=== PATIENT | male | born 1955 | race African-American/Black ===

== ENCOUNTER 2025-02-26 11:01 | Outpatient (AMB) | payer MEDICARE, MEDICAID, SELFPAY ==
--- OUTSIDE RECORDS SUMMARY | 2025-02-25 14:00 | XMS_ITS | Encounter Summary ---
Author Organization [facility] Address [address] [place] [address] Care Team Providers Care Community Affairs Manager Name Role Phone Jonathan Roth MD Primary Care Provider [phone] Reason for Visit * Reason Comments Chronic Kidney Disease Encounter Details Date Type Department Care Team (Latest Contact Info) Description 02/25/2025 2:00 PM EST Office Visit Nephrology - [facility] [address] [place] [phone] Rhett Vila MD [address] [place] [phone] CKD (chronic kidney disease) stage 5, GFR less than 15 ml/min (CMS/HCC V24, CMS/HCC V28) (Primary Dx); Primary hypertension; Pulmonary hypertension (CMS/HCC V24, CMS/HCC V28); Heart transplant recipient (CMS/HCC V24, CMS/HCC V28); Lung transplant recipient (CMS/HCC V24, CMS/HCC V28) Social History Tobacco Use Types Packs/Day Years Used Date Smoking Tobacco: Former Cigarettes 4 Q uit: 04/10/1988 Smokeless Tobacco: Never Alcohol Use Standard Drinks/Week Comments No 0 (1 standard drink = 0.6 oz pur e alcohol) Housing Instability Answer Date Recorde d Are you worried that in the next 2 months you may not have stable housing? No 12/12/2024 Food Access & Nutrition Answer Date Rec orded Do you have access to a vari ety of food including fruits and vegetables? Yes 12/12/2024 Access to Healthcare Answer Date Record ed Within the last 3 months, ho w many times did you visit the emergency department for your medical care? 0 12/12/2024 Health Literacy Answer Date Recorded How often do you need to hav e someone help you when you read instructions, pamphlets, or other written material from your doctor or pharmacy? Never 12/12/2024 Caregiver: How often do you need to have someone help you when you read instructions, pamphlets, or other written material from your doctor or pharmacy? Not on file 12/12/2024 Financial Risk Answer Date Recorded How hard is it for you to pa y for the very basics like food, housing, medical care, and air conditioning / heating? Not very hard 12/12/2024 Transportation Answer Date Recorded Has the lack of transportati on kept you from meetings, work, or from getting things needed for daily living? No Has the lack of transportati on kept you from medical appointments or from getting medications? No 12/12/2024 Social Isolation Answer Date Recorded How often do you feel lonely or isolated from th ose around you? Never 12/12/2024 Food Risk Answer Date Recorded Within the past 12 months we worried whether our food would run out before we got money to buy more. Never true 12/12/2024 Within the past 12 months th e food we bought just didn't last and we didn't have money to get more. Never true 12/12/2024 Dependent Care Answer Date Recorded Do you need help finding or paying for care for your loved ones. For example, child development instructor or elderly care for an older adult? No 12/12/2024 Education Answer Date Recorded Do you think completing more education or training, like finishing a GED, going to college, or learning a trade, would be helpful for you? N/A 12/12/2024 Employment and Income Answer Date Recor ded During the last four weeks, have you been actively looking for work? No 12/12/2024 Living Situation Answer Date Recorded What is your living situation? Unrecognized valu e 12/12/2024 Sex and Gender Information Value Date Recorded Sex Assigned at Not on file Legal Sex Male 6:52 AM EST Gender Identity Not on file Sexual Orientation Not on file documented as of this encounter Last Filed Vital Signs Vital Sign Reading Time Taken Comments Blood Pressure 146/72 02/25/2025 2:00 PM EST Pulse 71 02/25/2025 2:00 PM EST Temperature - - Respiratory Rate - - Oxygen Saturation - - Inhaled Oxygen Concentration - - Weight 112 kg (247 lb 3.2 oz) 02/25/2025 2:00 PM EST Height - - Body Mass Index 38.72 01/24/2025 2:38 PM EDT documented in this encounter Progress Notes * Rhett Vila MD - 02/25/2025 2:00 PM EST Renal follow up note : David Ritchie is a 70 y.o. year old male seen today for f/u HPI: Patient was sent in the office for follow-up regarding severe renal insufficiency He follows up with [facility] for his heartlung transplant Patient is feeling well but his creatinine usually runs between 4-4.5 No chest pain or shortness of breath. H he is on tacrolimus managed by [facility] He denies having any uremic symptoms He has a history of hear and bilateral james transplant at [facility] 14 years ago He also has a history of sarcoidosis which caused severe pulmonary HTN. He denies the use of NSAID. He denies any other change in the color or appearnce of the urine. There is no recent upper respiratory infection. HOME MEDICATIONS: Home Medications amLODIPine (NORVASC) 10 mg tablet Take 1 tablet (10 mg total) by mouth 1 (one) time each day. apixaban (ELIQUIS) 5 mg tablet Take 1 tablet (5 mg total) by mouth every 12 (twelve) hours. aspirin 81 mg EC tablet Take 1 tablet (81 mg total) by mouth 1 (one) time each day. calcitrioL (ROCALTROL) 0.25 mcg capsule Take 1 Capsule by mouth every other day. cloNIDine (VYENFZKC-VXU-0) 0.1 mg/[address] 1 Patch onto the skin once a week. denosumab (PROLIA) 60 mg/mL syringe syringe Inject 60 mg into the skin Once. ezetimibe (ZETIA) 10 mg tablet Take 1 tablet (10 mg total) by mouth 1 (one) time each day. folic acid (FOLVITE) 1 mg tablet Take 1 Tab by mouth daily. folic acid/multivit-min/lutein (CENTRUM SILVER ORAL) Multiple Vitamins-Minerals (CENTRUM SILVER ADULT 50+) Tab Take 1 tablet by mouth daily. Lactobacillus acidophilus (PROBIOTIC ORAL) Take by mouth. magnesium oxide 400 mg magnesium capsule Take 1 tablet by mouth 2 times daily. metoprolol succinate (TOPROL-XL) 100 mg 24 hr tablet Take 1 Tablet by mouth daily. metoprolol succinate (TOPROL-XL) 50 mg 24 hr tablet Take 1 tablet (50 mg total) by mouth 1 (one) time each day. montelukast (SINGULAIR) 10 mg tablet Take 10 mg by mouth at bedtime. pantoprazole (PROTONIX) 40 mg EC tablet Take 1 tablet (40 mg total) by mouth 1 (one) time each day before breakfast. pantoprazole (PROTONIX) 40 mg EC tablet Take 40 mg by mouth daily. prednisoLONE 5 mg (21 tabs) tablets,dose pack Take 1 Tab by mouth daily. sildenafiL (VIAGRA) 50 mg tablet Take 5 mg by mouth 1 (one) time each day. sulfamethoxazole-trimethoprim (BACTRIM,SEPTRA) 400-80 mg per tablet Take 1 tablet.old by mouth every 72 hours. Monday & Monday & Monday tacrolimus (PROGRAF) 1 mg capsule Take 1 Capsule by mouth 2 times daily. apixaban (Eliquis) 5 mg tablet Take 1 Tablet by mouth 2 times daily. magnesium oxide (MAG-OX) 400 mg (241.3 elemental magnesium) tablet Take 1 tablet (400 mg total) by mouth 1 (one) time each day. polyethylene glycol-electrolytes (NULYTELY) 420 gram solution Take 4,000 mL by mouth once for 1 dose. ALLERGY: Allergies Allergen Reactions Mold Other PHYSICAL EXAM: Visit Vitals Pulse 71 Wt 112 kg (247 lb 3.2 oz) BMI 38.72 kg/m?? Smoking Status Former BSA 2.21 m?? APPEARANCE: Alert and in no acute distress par EYES: PERRLA, conjunctiva and sclera normal. EARS: External ears normal. Canals clear. NOSE/SINUS: Nares normal. Septum midline. Mucosa normal. No drainage or sinus tenderness. THROAT: no erythema or exudates NECK: Neck supple, no adenopathy, thyroid symmetric and of normal size HEART: RRR with normal S1 and S2 ,no murmurs, no gallops, no JVD appreciated LUNG: clear to auscultation ABDOMEN: Bowel sounds normoactive, no bruits, soft, non-tender, without organomegaly or palpable masses EXTREMITIES: Extremities warm and well perfused without clubbing, cyanosis, or edema NEURO: Awake, alert and oriented x 3, no focal neurological deficit, with symmetrical reflexes SKIN: Skin color, texture, turgor normal. No rashes or lesions. LABS: Lab work done on 02/11/2025 hemoglobin 10.9 Hematocrit 37 Electrolyte panel within normal limits creatinine 4.3 Estimate GFR 40 No urine test available recently but last protein creatinine ratio few months ago was 0.55 ASSESSMENT 1. CKD (chronic kidney disease) stage 5, GFR less than 15 ml/min ([facility] V24, [facility] V28) 2. Primary hypertension 3. Pulmonary hypertension ([facility] V24, [facility] V28) 4. Heart transplant recipient ([facility] V24, [facility] V28) 5. Lung transplant recipient ([facility] V24, 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 Blood pressure has been highly fluctuant -S/p heart transplant and bilateral lung transplant follows up with [facility] transplant team vitamin D level acceptable on tacrolimus -Secondary hyperparathyroidism -Mild anemia-microcytic and hypochromic PLAN: He has been advised to continue taking tacrolimus and prednisone as per his transplant team in [facility] Tacrolimus dosing as per [facility] Patient blood pressure is inadequately controlled but patient likely has whitecoat effect Continue metoprolol 100 mg daily. Continue amlodipine 10 mg daily. Continue clonidine patch #1 q. 7 days for better blood pressure control. Target blood pressure should be systolic less than 120 and diastolic less than 80. Repeat urine protein creatinine .patient has had minimal proteinuria but I am reluctant to start him on RONDA inhibitor/ARB at this juncture Not a candidate for SGLT2 inhibitor Patient has secondary hyperparathyroidism. Continue calcitriol 0.25 mcg every other day with a follow-up calcium, phosphorus and PTH level reordered Vitamin D level is acceptable Repeat labs ordered Avoid NSAID Low sodium diet Renal transplant evaluation: He has been referred to [facility] transplant again today He was contacted by them but due to insurance related issues he was not able to see them He has also been advised to keep taking the transplant list in [place] Dialysis modality education: Patient has attended dialysis modality education. He would like to do peritoneal dialysis/home therapy I informed him that given progressive decline in GFR/stage V CKD he will be on renal replacement therapy in near future. Discussed with the patient again about uremic symptoms-need to get medical attention if he developsany of those symptoms. At this juncture not acidotic or hyperkalemic Follow-up with me in 3 months Thank you documented in this encounter Plan of Treatment Upcoming Encounters Date Type Department Care Team (Late st Contact Info) Description 03/03/2025 2:00 PM EST Office Visit Vascular Surgery - [place] [address] [address] [place] [address] Marni Roth PA [address] [facility] [address] [place] [address] 06/17/2025 2:00 PM EDT Office Visit Nephrology - [facility] [address] [facility] [place] [address] Rhett Vila MD [address] [place] [address] 07/25/2025 1:20 PM EDT Office Visit Endocrinology - [place] [address] [place] [address] Petey Davalos MD [address] [place], [place] Scheduled Orders Name Type Priority Associated Diagnoses Orde r Schedule Creatinine Lab Routine CKD (chronic kidney disease) stage 5, GFR less than 15 ml/min ([facility] V24, [facility] V28) Primary hypertension Pulmonary hypertension ([facility] V24, [facility] V28[facility] Heart transplant recipient ([facility] V24, [facility] V28) Expected: 04/27/2025, Expires: 10/14/2025 BUN Lab Routine CKD (chronic kidney disease) stage 5, GFR less than 15 ml/min ([facility] V24, [facility] V28) Primary hypertension Pulmonary hypertension ([facility]/HCC V24, [facility] V28) Heart transplant recipient ([facility] V24, [facility] V28) Expected: 04/27/2025, Expires: 10/14/2025 Electrolyte panel Lab Routine CKD (chronic kidney disease) stage 5, GFR less than 15 ml/min ([facility] V24, [facility] V28) Primary hypertension Pulmonary hypertension ([facility] V24, [facility] V28[facility] Heart transplant recipient ([facility] V24, [facility] V28) Expected: 04/27/2025, Expires: 10/14/2025 Protein and creatinine with ratio, urine Lab Routine CKD (chronic kidney disease) stage 5, GFR less than 15 ml/min ([facility] V24, [facility] V28) Primary hypertension Pulmonary hypertension ([facility]/HCC V24, CMS/HCC V28) Heart transplant recipient ([facility] V24, [facility] V28) Expected: 04/27/2025, Expires: 10/14/2025 Parathyroid hormone intact Lab Routine CKD (chronic kidney disease) stage 5, GFR less than 15 ml/min ([facility] V24, [facility] V28) Primary hypertension Pulmonary hypertension ([facility] V24, [facility]/HCC V28) Heart transplant recipient ([facility] V24, [facility] V28) Expected: 04/27/2025, Expires: 10/14/2025 documented as of this encounter Goals Goal Patient Goal Type Associated Problems Recent Progress Patient-Stated? Author LTG General Lisa Cardona, PT Note: Pt will demonstrate independence with final HEP Pt will increase hip IR PROM to 30 deg Pt will increase hip MMT to 4/5 Pt will report decreased pain level to < 2/10 after a round of golf Pt will demonstrate full pain-free lumbar AROM Pt will demonstrate neg Tiffanie's test bilaterally documented as of this encounter Visit Diagnoses Diagnosis CKD (chronic kidney disease) stage 5, GFR less than 15 ml/min ([facility] V24, [facility] V28)- Primary Chronic kidney disease, Stage V Primary hypertension Unspecified essential hypertension Pulmonary hypertension ([facility] V24, [facility] V28) 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 01/10/2025 02/25/2025 documented as of this encounter Additional Health Concerns Assessment Noted Time PHQ-9 Depression Total Score: 0 12/13/19 25 3:44 PM EDT A fall risk assessment has been complete d for the patient 12/12/2024 2:48 PM EDT documented as of this encounter Care Teams Community Affairs Manager Relationship Specialty Start Date End Date Jonathan Roth MD [address] [place] [phone] PCP - General Internal Medicine 02/13/24 documented as of this encounter
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
[2025-02-26 11:12] VITALS: BMI 37.6
--- OUTSIDE RECORDS SUMMARY | 2025-02-26 21:44 | XMS_ITS | Clinical Summary ---
Author Organization [facility] Address [address] [place] [address] Care Team Providers Care Grill Attendant Name Role Phone Jonathan Roth MD Primary Care Provider [phone] Allergies No known active allergies Medications Medication Sig Dispensed Refills Start Date End Date Status apixaban (ELIQUIS) 5 MG TABS tablet Take 1 tablet (5 mg total) by mouth every 12 (twelve) hours. 0 Active ezetimibe (ZETIA) tablet 10 mg Take 1 tablet (10 mg total) by mouth daily. 0 Active amLODIPine (NORVASC) tablet 10 mg Take 1 tablet (10 mg total) by mouth daily. 0 Active metoprolol succinate (TOPROL-XL) 24 hr tablet 50 mg Take 1 tablet (50 mg total) by mouth daily. 0 Active pantoprazole (PROTONIX) 40 MG tablet Take 1 tablet (40 mg total) by mouth every morning on an empty stomach. 0 Active magnesium oxide 400 (240 Mg) MG TABS tablet Take 1 tablet (400 mg total) by mouth daily. 0 Active aspirin EC 81 MG tablet Take 1 tablet (81 mg total) by mouth daily. 0 Active Active Problems No known active problems Family History Medical History Relation Name Comments Prostate cancer Father Relation Name Status Comments Father Mother Social History Tobacco Use Types Packs/Day Years Used Date Smoking Tobacco: Former Cigarettes 4 Q uit: 1991 Smokeless Tobacco: Never Tobacco Cessation:Counseling Given: Not Answered Alcohol Use Standard Drinks/Week Comments Not Currently 0 (1 standard drink = 0.6 oz pur e alcohol) Quit 1991 Sex and Gender Information Value Date Recorded Sex Assigned at Not on file Gender Identity Not on file Sexual Orientation Not on file Job Start Date Occupation Industry Not on file Not on file Not on file Last Filed Vital Signs Vital Sign Reading Time Taken Comments Blood Pressure 157/83 10/11/2023 11:19 AM EDT Pulse 65 10/11/2023 11:19 AM EDT Temperature 36.7 C (98 F) 10/11/2023 11:19 AM EDT Respiratory Rate - - Oxygen Saturation 100% 10/11/2023 11:19 AM EDT Inhaled Oxygen Concentration - - Weight 102.1 kg (225 lb) 10/11/2023 11:19 AM EDT Height 170.2 cm (5' 7 ) 10/11/2023 11:19 AM EDT Body Mass Index 35.24 10/11/2023 11:19 AM EDT Plan of Treatment Health Maintenance Due Date Last Done Comments Hepatitis C Screening 1955 COVID-19 Vaccine (#1) 1955 Depression Screening 1966 Preventative Health Evaluation 01/24/1972 Colon Cancer Screening (Colonoscopy) 1999 Fall Risk Assessment 2019 Influenza Vaccine (#1) 2024 , 01/09/2020, 01/15/2018, Additional history exists RSV Adult > 60+ Yrs or (1 - 1-dose 75+ series) 2029 DTap / Tdap / Td (2 - Td or Tdap) 10/12/2032 10/12/2022 Pneumococcal Vaccine Completed 11/02/2021, 01/15/2018, 10/06/2015, Additional history exists Hepatitis B Vaccines Completed 02/16/2022, 11/10/2021, 02/10/2011, Additional history exists Shingrix-Zoster Vaccine Completed 09/14/2022, 11/02 RSV Ped < 20 months Aged Out No longe r eligible based on patient's age to complete this topic Care Teams Grill Attendant Relationship Specialty Start Date End Date Jonathan Roth MD PCP - General Internal Medicine 10/21/22
--- OUTSIDE RECORDS SUMMARY | 2025-02-26 21:44 | XMS_ITS | Encounter Summary ---
Author Organization [facility] Address [address] [place] [address] Care Team Providers Care Integration Specialist Name Role Phone Jonathan Roth MD Primary Care Provider [phone] Encounter Details Date Type Department Care Team ([facility] st Contact Info) Description 02/07/2025 Results Follow-Up Vascular Surgery - [place] [address] [facility] [address] [place] [address] Marni Roth PA [address] [facility] [address] [place] [address] Social History Tobacco Use Types Packs/Day Years [...] Record ed Within the last 3 months, evelio damico many times did you visit the emergency [...] do you feel lonely or isolated from ose around you? Never 12/12/2024 Food Risk [...] care for your loved ones. For example, children's institution attendant or elderly care for an older adult? [...] on file documented as of this encounter Plan of Treatment Upcoming Encounters Date Type Department Care Team (Late st Contact Info) Description 03/03/2025 2:00 PM EST Office Visit Vascular Surgery - [place] [address] [facility] [address] [place] [address] Marni Roth PA [address] [facility] [address] [place] [address] 06/17/2025 2:00 PM EDT Office Visit Nephrology [place] [address] [place] [address] Rhett Vila MD [address] [place] [address] 07/25/2025 1:20 PM EDT Office Visit Endocrinology - [place] [address] [place], [place] [phone] Petey Davalos MD [address] [place], [place] documented as of this encounter Goals Goal Patient Goal Type Associated Problems Recent Progress Patient-Stated? Author LTG General No Lisa Pineda, PT Note: Pt will demonstrate independence with final HEP Pt will increase hip IR PROM to 30 deg Pt will increase hip MMT to 4/5 Pt will report decreased pain level to < 2/10 after a round of golf Pt will demonstrate full pain-free lumbar AROM Pt will demonstrate neg Tiffanie's test bilaterally documented as of this encounter Visit Diagnoses Not on filedocumented in this encounter Additional Health Concerns Assessment Noted Time PHQ-9 Depression Total Score: 0 12/13/19 25 3:44 PM EDT A fall risk assessment has been complete d for the patient 12/12/2024 2:48 PM EDT documented as of this encounter Care Teams Integration Specialist Relationship Specialty Start Date End Date Jonathan Roth MD [address] [place], [place] PCP - General Internal Medicine 02/13/24 documented as of this encounter
--- OUTSIDE RECORDS SUMMARY | 2025-02-26 21:45 | XMS_ITS | Encounter Summary ---
Author Organization [facility] Address [address] [place] [address] Care Team Providers Care Fur Sorter Name Role Phone Jonathan Roth MD Primary Care Provider Reason for Visit * Reason Comments REFERRAL Encounter Details Date Type Department Care Team Description 04/16/2003 Telephone Adult Medicine [facility] [address] [place] [address] Arnold Valenzuela MD [address] [place] [address] REFERRAL; (vitor tai md) Social History Tobacco Use Types Packs/Day Years Used Date Smoking Tobacco: Never Assessed Sex Assigned at Date Recorded Male 02/07/2022 11:26 AM EDT Job Start Date Occupation Industry Not on file Not on file Not on file documented as of this encounter Miscellaneous Notes * Telephone Encounter - 04/16/2003 1:58 PM ESTCALL RECEIVED. Contact: self cell [phone] Payor: [facility] Plan: O $15 [place] [id number] Product Type: O [id number] documented in this encounter Plan of Treatment Not on file documented as of this encounter Visit Diagnoses Not on filedocumented in this encounter Additional Health Concerns Infection Onset Date Last Indicated Resolved Time COVID-19 09/27/2023 09/28/2023 documented as of this encounter Care Teams Fur Sorter Relationship Specialty Start Date End Date Jonathan Roth MD [address] [place] [address] PCP - General 01/01/01 documented as of this encounter
--- OUTSIDE RECORDS SUMMARY | 2025-02-26 21:45 | XMS_ITS | Encounter Summary ---
Author Organization [facility] Address [address] [place] [address] Care Team Providers Care Set Up Inspector Name Role Phone Jonathan Roth MD Primary Care Provider [phone] Encounter Details Date Type Department Care Team Description 02/28/2023 First Aid Director Report Medical Records [address] [place] [address] Franky Becerra MD, MD Social History Tobacco Use Types Packs/Day Years Used Date Smoking Tobacco: Former Cigarettes 4 15 Q uit: 04/10/1988 Cigars Smokeless Tobacco: Never Alcohol Use Standard Drinks/Week Comments No 0 (1 standard drink = 0.6 oz pur e alcohol) Sex Assigned at Date Recorded Male 02/07/2022 11:26 AM EDT Job Start Date Occupation Industry Not on file Not on file Not on file COVID-19 Exposure Response Date Recorded In the last 10 days, have yo u been in contact with someone who was confirmed or suspected to have Coronavirus/COVID-19? No / Unsure 02/07/2023 3:08 PM EDT documented as of this encounter Plan of Treatment Not on file documented as of this encounter Visit Diagnoses Not on filedocumented in this encounter Additional Health Concerns Infection Onset Date Last Indicated Resolved Time COVID-19 09/27/2023 09/28/2023 documented as of this encounter Care Teams Set Up Inspector Relationship Specialty Start Date End Date Jonathan Roth MD [address] [place] [address] PCP - General 01/01/01 documented as of this encounter
--- OUTSIDE RECORDS SUMMARY | 2025-02-26 21:45 | XMS_ITS | Encounter Summary ---
Author Organization [facility] Address [address] [place] [address] Care Team Providers Care Environmental Compliance Technician Name Role Phone Jonathan Roth MD Primary Care Provider [phone] Encounter Details Date Type Department Care Team Description 01/08/2019 Pt. Non Urgent Medical Question Adult Medicine [address] [address] Jonathan Roth MD [address] [place] [address] Social History Tobacco Use Types Packs/Day Years [...] on file documented as of this encounter Progress Notes * Hyacinth Guadalupe M.A. - 01/08/2019 11:50 AM EDTFrom: David Ritchie To: Jonathan Roth MD Sent: 01/08/2019 10:58 AM EDT Subject: Test for [facility] [place] Good morning I have my virtual visit with [facility] on I need to have a chest x-Ray and a pulmonary function test done. The X-ray needs to be put on a disk and the function test needs to be fax could you schedule these appointments for me please. Any questions please call me. Thank you documented in this encounter Plan of Treatment Not on file documented as of this encounter Visit Diagnoses Not on filedocumented in this encounter Additional Health Concerns Infection Onset Date Last Indicated Resolved Time COVID-19 09/27/2023 09/28/2023 documented as of this encounter Care Teams Environmental Compliance Technician Relationship Specialty Start Date End Date Jonathan Roth MD [address] [place] [address] PCP - General 01/01/01 documented as of this encounter
--- OUTSIDE RECORDS SUMMARY | 2025-02-26 21:45 | XMS_ITS | Encounter Summary ---
Author Organization [facility] Address [address] [place] [address] Care Team Providers Care Furniture Sprayer Name Role Phone Jonathan Roth MD Primary Care Provider [phone] Encounter Details Date Type Department Care Team Description 10/01/2023 Pt. Non Urgent Medical Question Endocrinology - [address] [address] Daja Starkey MD [address] [place] [address] Social History Tobacco Use Types Packs/Day Years [...] encounter Miscellaneous Notes * Telephone Encounter - Diana Stratton M.A. - 10/02/2023 6:57 AM EDTFrom: Brian Ritchie To: Suzy Starkey Sent: 10/01/2023 9:15 AM EDT Subject: Shot I am just curious am I ever going to have this treatment done documented in this encounter Plan of Treatment Not on file documented as of this encounter Visit Diagnoses Not on filedocumented in this encounter Additional Health Concerns Infection Onset Date Last Indicated Resolved Time COVID-19 09/27/2023 09/28/2023 documented as of this encounter Care Teams Furniture Sprayer Relationship Specialty Start Date End Date Jonathan Roth MD [address] [place] [address] PCP - General 01/01/01 documented as of this encounter
--- OUTSIDE RECORDS SUMMARY | 2025-02-26 21:45 | XMS_ITS | Clinical Summary ---
Author Organization [facility] Address [address] [place] [address] Care Team Providers Care Tax Associate Name Role Phone Unavailable Primary Care Provider Unavailabl e Social History Tobacco Use Types Packs/Day Years Used Date Smoking Tobacco: Never Assessed Sex and Gender Information Value Date Recorded Sex Assigned at Not on file Legal Sex Male 5:09 PM EST Gender Identity Not on file Sexual Orientation Not on file Plan of Treatment Health Maintenance Due Date Last Done Comments Colorectal Cancer Screening: Annual FOBT 2003 Colorectal Cancer Screening: Colonoscopy 2003 Colorectal Cancer Screening: Sigmoidoscopy 2003 Hepatitis B Vaccine (1 of 3 - Risk 3-dose series) 2014 02/16/2022, 11/10/2021, 02/10/2011, Additional history exists Pneumococcal Vaccine: 50+ Ye ars (4 of 4 - PCV20 or PCV21) 01/15/2023 01/15/2018, 10/06/2015, 05/01/2012, Additional history exists Influenza Vaccine (#1) 2024 4, 04/14/2021, 01/09/2020, Additional history exists Pneumococcal Vaccine: Peds ( 0 to 5 Years) and At-Risk Patients (6 to 49 Years) Discontinued 01/15/2018, 10/06/2015, 05/01/2012, Additional history exists Procedures Procedure Name Priority Date/Time Associated Diagnosis Comments PTH, INTACT Routine 12/17/2024 12:18 PM EDT VITAMIN D 25 HYDROXY Routine 12/17/2024 12:18 PM EDT ELECTROLYTE PANEL Routine 12/17/2024 12: 18 PM EDT CREATININE, SERUM Routine 12/17/2024 12: 18 PM EDT CALCIUM Routine 12/17/2024 12:18 PM EDT BUN Routine 12/17/2024 12:18 PM EDT PHOSPHATE ( PHOSPHORUS) Routine 12/17/2024 12:18 PM EDT from Last 3 Months Results * Vitamin D 25 Hydroxy (12/17/2024 12:18 PM EDT) Pathologist [facility] Vitamin D, 25-OH, Total 55.6 30.0 - 80.0 ng/mL [facility] 12/17/2024 12:1 8 PM EDT 12/17/2024 12:44 PM EDT Rhett Vila MD LAB BLOOD ORDERABLES Final Resu lt [facility] [address] [place] [address] * (ABNORMAL) BUN (12/17/2024 12:18 PM EDT) BUN 56(H) 5 - 25 mg/dL [facility] 12/17/2024 12:1 8 PM EDT 12/17/2024 12:44 PM EDT Rhett Vila MD LAB BLOOD ORDERABLES Final Resu lt [facility] [address] [place] [address] * Phosphorus (12/17/2024 12:18 PM EDT) Phosphorus 3.4 2.5 - 4.5 mg/dL [facility] 12/17/2024 12:1 8 PM EDT 12/17/2024 12:44 PM EDT us Rhett Vila MD LAB BLOOD ORDERABLES Final Resu lt Performing Organization Address [facility] Co de Phone Number [facility] [address] [place] [address] * (ABNORMAL) PTH, Intact (12/17/2024 12:18 PM EDT) PTH 305.2(H) 18.5 - 88.0 pcg/mL [facility] 12/17/2024 12:1 8 PM EDT 12/17/2024 12:44 PM EDT us Rhett Vila MD LAB BLOOD ORDERABLES Final Resu lt Performing Organization Address [facility] de Phone Number [facility] [address] [place] [address] * (ABNORMAL) Creatinine, serum (12/17/2024 12:18 PM EDT) Creatinine Serum 4.18(H) 0.70 - 1.30 mg/dL [facility] eGFR 15(L) >=60 mL/min/1. 73m2 [facility] Comment:Calculation based on the Chronic Kidney Disease Epidemiology Collaboration (CKD-EPI) equation refit without adjustment for race. 12/17/2024 12:1 8 PM EDT 12/17/2024 12:44 PM EDT us Rhett Vila MD LAB BLOOD ORDERABLES Final Resu lt Performing Organization Address [facility] Co de Phone Number [facility] [address] [place] [address] * Calcium (12/17/2024 12:18 PM EDT) Calcium 9.0 8.5 - 10.5 mg/dL [facility] 12/17/2024 12:1 8 PM EDT 12/17/2024 12:44 PM EDT Rhett Vila MD LAB BLOOD ORDERABLES Final Resu lt Performing Organization Address [facility] Co de Phone Number [facility] [address] [place] [address] * (ABNORMAL) Electrolyte panel (12/17/2024 12:18 PM EDT) Sodium 141 133 - 145 mmol/L [facility] Potassium 5.0 3.5 - 5.5 mmol/L [facility] Chloride 112(H) 96 - 110 mmol/L [facility] Bicarbonate (CO2) 22 21 - 32 mmol/L [facility] Anion Gap 7 3 - 11 [facility] 12/17/2024 12:1 8 PM EDT 12/17/2024 12:44 PM EDT Rhett Vila MD LAB BLOOD ORDERABLES Final Resu lt Performing Organization Address [facility] Co de Phone Number [facility] [address] [place] [address] from Last 3 Months Insurance * Guarantor: David Ritchie Account Type Relation to Patient Date of Phone Billing Address Personal/Family Self 1955 [address] [place] [address] Medicare Medicaid [place] * Guarantor: David Ritchie Account Type Relation to Patient Date of Phone Billing Address Personal/Family Self 1955 [address] [place] [id number]
--- OUTSIDE RECORDS SUMMARY | 2025-02-26 21:45 | XMS_ITS | Encounter Summary ---
Author Organization [facility] Address [address] [place] [address] Care Team Providers Care Ground Support Equipment Mechanic Name Role Phone Jonathan Roth MD Primary Care Provider [phone] Encounter Details Date Type Department Care Team Description 10/06/2023 Pt. Non Urgent Medical Question Adult Medicine [address] [phone] Jonathan Roth MD [address] [place] [address] Social History Tobacco Use Types Packs/Day Years [...] encounter Miscellaneous Notes * Telephone Encounter - Sondra Wolf C.M.A. - 10/06/2023 10:10 AM EDTFrom: David Ritchie To: Nathanael Roth Sent: 10/06/2023 9:57 AM EDT Subject: Up coming appointment I was thinking when I was in the hospital they told me that I had pneumonia could you order me X-ray to see if the pneumonia is still in my lungs. As of now that has been on my mind we all know how concerned I am about my lungs documented in this encounter Plan of Treatment Not on file documented as of this encounter Visit Diagnoses Not on filedocumented in this encounter Additional Health Concerns Infection Onset Date Last Indicated Resolved Time COVID-19 09/27/2023 09/28/2023 documented as of this encounter Care Teams Ground Support Equipment Mechanic Relationship Specialty Start Date End Date Jonathan Roth MD [address] [place], [place] [id number] PCP - General 01/01/01 documented as of this encounter
--- OUTSIDE RECORDS SUMMARY | 2025-02-26 21:45 | XMS_ITS | Encounter Summary ---
Author Organization [facility] Address [address] [place] [address] Care Team Providers Care Linen Grader Name Role Phone Jonathan Roth MD Primary Care Provider [phone] Encounter Details Date Type Department Care Team Description 06/21/2018 Orders Only Medical Records [address] [place] [address] Jonathan Roth MD [address] [place], [place] [phone] Social History Tobacco Use Types Packs/Day Years [...] on file documented as of this encounter Procedures Procedure Name Priority Date/Time Associated Diagnosis Comments OUTSIDE ECHO Routine 06/19/2018 documented in this encounter Results * OUTSIDE ECHO (06/19/2018) Jonathan Roth MD CARDIOLOGY documented in this encounter Visit Diagnoses Not on filedocumented in this encounter Additional Health Concerns Infection Onset Date Last Indicated Resolved Time COVID-19 09/27/2023 09/28/2023 documented as of this encounter Care Teams Linen Grader Relationship Specialty Start Date End Date Jonathan Roth MD [address] [place] [address] PCP - General 01/01/01 documented as of this encounter
--- OUTSIDE RECORDS SUMMARY | 2025-02-26 21:45 | XMS_ITS | Encounter Summary ---
Author Organization [facility] Address [address] [place] [address] Care Team Providers Care Baseball Umpire For Little [employer] Name Role Phone Jonathan Roth MD Primary Care Provider [phone] Encounter Details Date Type Department Care Team Description 12/27/2022 Plant Operations Vice President Report Medical Records [address] [place] [address] Franky Becerra MD, MD Social History Tobacco [...] suspected to have Coronavirus/COVID-19? No / Unsure 11/30/2022 2:03 PM EDT documented as of this encounter Plan of Treatment Not on file documented as of this encounter Visit Diagnoses Not on filedocumented in this encounter Additional Health Concerns Infection Onset Date Last Indicated Resolved Time COVID-19 09/27/2023 09/28/2023 documented as of this encounter Care Teams Baseball Umpire [employer] Relationship Specialty Start Date End Date Jonathan Roth MD [address] [place] [address] PCP - General 01/01/01 documented as of this encounter
--- OUTSIDE RECORDS SUMMARY | 2025-02-26 21:45 | XMS_ITS | Encounter Summary ---
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
--- OUTSIDE RECORDS SUMMARY | 2025-02-26 21:45 | XMS_ITS | Encounter Summary ---
Author Organization [facility] Address [address] [place] [address] Care Team Providers Care Podopediatrician Name Role Phone Jonathan Roth MD Primary Care Provider [phone] Encounter Details Date Type Department Care Team Description 05/04/2023 Orders Only Medical Records [address] [place] [address] David Jenkisn MD Social History Tobacco Use Types Packs/Day [...] Name Priority Date/Time Associated Diagnosis Comments OUTSIDE LAB Routine 04/04/2023 documented in this encounter Results * OUTSIDE LAB (04/04/2023) David Jenkins MD LAB documented in this encounter Visit Diagnoses Not on filedocumented in this encounter Additional Health Concerns Infection Onset Date Last Indicated Resolved Time COVID-19 09/27/2023 09/28/2023 documented as of this encounter Care Teams Podopediatrician Relationship Specialty Start Date End Date Jonathan Roth MD [address] [place] [address] PCP - General 01/01/01 documented as of this encounter
--- OUTSIDE RECORDS SUMMARY | 2025-02-26 21:45 | XMS_ITS | Encounter Summary ---
Author Organization [facility] Address [address] [place] [address] Care Team Providers Care Smoke Jumper Supervisor Name Role Phone Jonathan Roth MD Primary Care Provider [phone] Encounter Details Date Type Department Care Team Description 04/26/2023 Pt. Non Urgent Medical Question Adult Medicine [address] [phone] Jonathan Roth MD [address] [place] [address] Social History Tobacco Use Types Packs/Day Years [...] encounter Miscellaneous Notes * Telephone Encounter - Lisa Hong - 04/26/2023 3:42 PM ESTFrom: Brian Ritchie To: Nathanael Roth Sent: 04/26/2023 3:37 PM EST Subject: Test Sorry for the confusion it has been all taken care of [facility] was responsible for the problems they fax it to you and [facility] and change Dr. Chance name and made you the PCP once again please let the person who I spoke with that I am sorry, As I mentioned that I was on the outside looking in the only thing I knew is what [facility] said. documented in this encounter Plan of Treatment Not on file documented as of this encounter Visit Diagnoses Not on filedocumented in this encounter Additional Health Concerns Infection Onset Date Last Indicated Resolved Time COVID-19 09/27/2023 09/28/2023 documented as of this encounter Care Teams Smoke Jumper Supervisor Relationship Specialty Start Date End Date Jonathan Roth MD [address] [place] [address] PCP - General 01/01/01 documented as of this encounter
--- OUTSIDE RECORDS SUMMARY | 2025-02-26 21:45 | XMS_ITS | Encounter Summary ---
Author Organization [facility] Address [address] [place] [address] Care Team Providers Care Imaging Tech Name Role Phone Jonathan Roth MD Primary Care Provider [phone] Encounter Details Date Type Department Care Team Description 05/01/[address] [facility] [address] [place] [address] Rhett Vila MD [address] [place] [address] Social History Tobacco Use Types Packs/Day Years [...] documented as of this encounter Care Teams Imaging Tech Relationship Specialty Start Date End Date Jonathan Roth MD [address] [place] [address] PCP - General 01/01/01 documented as of this encounter
--- OUTSIDE RECORDS SUMMARY | 2025-02-26 21:45 | XMS_ITS | Encounter Summary ---
Author Organization [facility] Address [address] [place] [address] Care Team Providers Care Delivery Professional Name Role Phone Jonathan Roth MD Primary Care Provider [phone] Reason for Visit * Reason Onset Date Comments TEST RESULTS 06/27/2018 Encounter Details Date Type Department Care Team Description 06/27/2018 Telephone Pulmonology - [address] [place] [address] Dada Welch MD TEST RESULTS Social History Tobacco Use Types Packs/Day Years [...] encounter Miscellaneous Notes * Telephone Encounter - Natalia Chaidez M.A. - 07/04/2018 8:53 AM EDT Notes faxed to [facility]. * Telephone Encounter - Amanda Welch - 07/04/2018 8:45 AM EDT Pt its returning call With the fax number of the [facility] to be fax the information requested.They need it today Please fax to [phone] Att: Brett Powell and Dr River * Telephone Encounter - Fanny Rosario - 07/03/2018 12:33 PM EDT Noted * Telephone Encounter - Natalia Chaidez M.A. - 07/03/2018 8:15 AM EDT I lefta message for patient to call the office with the phone and fax number to the [facility] so I can fax informaton requested. * Telephone Encounter - Dada Welch MD - 07/02/2018 6:17 PM EDT Please fax pfts and CT chest along with anything else to [facility] * Telephone Encounter - Vidhya Gongora - 07/02/2018 2:38 PM EDT Patient needs the results from Dr Welch. He needs results sent to [facility] by Monday. Please call patient. * Telephone Encounter - Franci Lange M.A. - 06/27/2018 2:50 PM EDT Please advise on results for this patient. Vf * Telephone Encounter - Amanda Welch - 06/27/2018 1:45 PM EDT Inform patient: ANY URGENT OR ABNORMAL RESULTS WIILL RESULT IN A CALL BACK TO THE PATIENT FARIDEH. Type of test: : PFT result Date test was performed: Where was the test performed: [address] [place] [address] Who ordered this test?: DR Welch Is the doctor here today?: NO Can the message wait until the doctor returns?: YES IF PATIENT'S PCP IS NOT IN INSTRUCT PATIENT THAT THEY WILL RECEIVE A CALL BACK WHEN THE PCP IS IN THE OFFICE NEXT. documented in this encounter Plan of Treatment Not on file documented as of this encounter Visit Diagnoses Not on filedocumented in this encounter Additional Health Concerns Infection Onset Date Last Indicated Resolved Time COVID-19 09/27/2023 09/28/2023 documented as of this encounter Care Teams Delivery Professional Relationship Specialty Start Date End Date Jonathan Roth MD [address] [place] [address] PCP - General 01/01/01 documented as of this encounter
--- OUTSIDE RECORDS SUMMARY | 2025-02-26 21:45 | XMS_ITS | Encounter Summary ---
Author Organization [facility] Address [address] [place] [address] Care Team Providers Care Company Driver Name Role Phone Jonathan Roth MD Primary Care Provider [phone] Encounter Details Date Type Department Care Team Description 05/27/2010 Pharmacy Technician Inpatient Report Medical Records [address] [place] [address] Conor Murrieta MD Social History Tobacco Use Types Packs/Day Years Used Date Smoking Tobacco: Former Cigarettes 4 15 Q uit: 04/10/1988 Cigars Alcohol Use Standard Drinks/Week Comments No 0 [...] documented as of this encounter Care Teams Company Driver Relationship Specialty Start Date End Date Jonathan Roth MD [address] [place] [address] PCP - General 01/01/01 documented as of this encounter
--- OUTSIDE RECORDS SUMMARY | 2025-02-26 21:45 | XMS_ITS | Patient Health Record ---
Author Organization [facility] Address [address] [place] [address] Care Team Providers Care Core Machine Operator Name Role Phone Blake Roth MD Primary Care Provider Larisa Gorman Unavailable [phone] Allergies No Known Allergies Reason For Referral No Information Medications Medication SIG (Take, Route, Frequency, Duration) Notes Start Date End Date Status Montelukast Sodium 10 MG 1 tablet Orally Once a day; Duration: 30 day(s) Active Aspirin 81 MG 1 tablet Orally Once a day; Duration: 30 day(s) Active Probiotic Active Pantoprazole Sodium 40 MG 1 tablet Orall y Once a day; Duration: 30 day(s) Active Metoprolol Succinate 25 MG 1 capsule Ora lly Once a day; Duration: 30 day(s) Active Vitamin D 78397 U as directed Orally Active Folic Acid 1 MG 1 tablet Orally Once a day; Duration: 30 day(s) Active Tacrolimus 0.5 MG as directed Orally Active PredniSONE (Victoriano) 5 MG as directed Orally Active Polyethylene Glycol Active Tacrolimus 1 MG as directed Orally Active Multiple Minerals-Vitamins - as directed Orally Active Sildenafil Citrate 50 MG 1 tablet as nee ded Orally Once a day; Duration: 30 day(s) Active Sulfamethoxazole-Trimethopr im 400-80 MG 1 tablet Orally Once a day; Duration: 10 day(s) Active Debrox 6.5 % 5 drops into affecte d ear Otic Twice a day; Duration: 4 day(s) Active Magnesium 400 MG as directed Orally Active Ezetimibe 10 MG 1 tablet Orally Once a day; Duration: 30 day(s) Active Social History Tobacco Use: Social History Observation Description Date Details (start date - stop date) Former Smoker NA - NA Tobacco Use/Smoking Question Answer Notes Are you a: former smoker Alcohol Screen Question Answer Notes Did you have a drink containing alcohol in the p ast year? No Points 0 Interpretation Negative Problems Problem Type SNOMED Code ICD Code Onset Dates Problem Status W/U Status Risk Notes Problem Acquired hallux valgus (95840698) Hallux valgus (acquired), left foot (M20.12) Active confirmed Problem Acquired hallux valgus (36417004) Hallux valgus (acquired), right foot (M20.11) Active confirmed Plan Of Treatment Pending Test Test Name Order Date [id number] NAIL, 1-5 05/03/2022 Insurance Providers Payer Name Payer Address Payer Phone Subscriber Number Group Number Insured Name Patient Relationship to Insured Coverage Start Date Coverage End Date Medicare [employer] [address] [place] [address] [id number] David Ritchie Self - patient is the insured Medical (General) History Surgical History Surgery Date(Month/Year) 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
--- OUTSIDE RECORDS SUMMARY | 2025-02-26 21:45 | XMS_ITS | Encounter Summary ---
Author Organization [facility] Address [address] [place] [address] Care Team Providers Care Casino Surveillance Officer Name Role Phone Jonathan Roth MD Primary Care Provider [phone] Encounter Details Date Type Department Care Team Description 03/06/2023 Orders Only Medical Records [address] [place] [address] Jonathan Roth MD [address] [place] [address] Social History Tobacco Use Types Packs/Day Years [...] Recorded In the last 10 days, have gale u been in contact with someone who was confirmed or suspected to have Coronavirus/COVID-19? No / Unsure 02/07/2023 3:08 PM EDT documented as of this encounter Plan of Treatment Not on file documented as of this encounter Procedures Procedure Name Priority Date/Time Associated Diagnosis Comments OUTSIDE VASCULAR STUDY Routine 02/17/2023 documented in this encounter Results * OUTSIDE VASCULAR STUDY (02/17/2023) Jonathan Roth MD CARDIOLOGY documented in this encounter Visit Diagnoses Not on filedocumented in this encounter Additional Health Concerns Infection Onset Date Last Indicated Resolved Time COVID-19 09/27/2023 09/28/2023 documented as of this encounter Care Teams Casino Surveillance Officer Relationship Specialty Start Date End Date Jonathan Roth MD [address] [place] [address] PCP - General 01/01/01 documented as of this encounter
--- OUTSIDE RECORDS SUMMARY | 2025-02-26 21:45 | XMS_ITS | Encounter Summary ---
Author Organization [facility] Address [address] [place] [address] Care Team Providers Care Monotype Operator Name Role Phone Jonathan Roth MD Primary Care Provider [phone] Encounter Details Date Type Department Care Team Description 02/05/2018 Telephone Internal Medicine - [place] [address] [facility], [address] [place] [address] Lily Barcenas, SHAHID, LDN [address] [address] Social History Tobacco Use Types Packs/Day Years [...] documented as of this encounter Care Teams Monotype Operator Relationship Specialty Start Date End Date Jonathan Roth MD [address] [place] [address] PCP - General 01/01/01 documented as of this encounter
--- OUTSIDE RECORDS SUMMARY | 2025-02-26 21:45 | XMS_ITS | Encounter Summary ---
Author Organization [facility] Address [address] [place] [address] Care Team Providers Care Buckle Stapler Name Role Phone Jonathan Roth MD Primary Care Provider [phone] Encounter Details Date Type Department Care Team Description 01/16/2019 Old Medical Records Medical Records 4 [place] [address] Abstract, Provider Social History Tobacco Use Types Packs/Day Years [...] documented as of this encounter Care Teams Buckle Stapler Relationship Specialty Start Date End Date Jonathan Roth MD [address] [place] [address] PCP - General 01/01/01 documented as of this encounter
--- OUTSIDE RECORDS SUMMARY | 2025-02-26 21:45 | XMS_ITS | Encounter Summary ---
Author Organization [facility] Address [address] [place] [address] Care Team Providers Care Packing Shed Supervisor Name Role Phone Jonahtan Roth MD Primary Care Provider [phone] Reason for Referral * EXTERNAL (Routine) - Authorized/Booked Specialty Diagnoses / Procedures Referred By Contac t Referred To Contact Gastroenterology Diagnoses Other specified counseling Procedures REFERRAL TO GASTROENTEROLOGY Jonathan Roth MD [address] [place] [address] [facility] Specialty/Colon & Rectal [address] [address] Referral ID Status Reason Start Date Expiration Date V isits Requested Visits Authorized SEE NOTE Authorized/B ooked 11/28/2017 04/05/2018 1 1 Reason for Visit * Reason Onset Date Comments REFERRAL 11/27/2017 Encounter Details Date Type Department Care Team Description 11/27/2017 Telephone Gastroenterology - [place] [address] [place], [place] [phone] Rober Cole MD REFERRAL Social History Tobacco Use Types Packs/Day Years [...] encounter Miscellaneous Notes * Telephone Encounter - Jerri Kathleen C.M.A. - 12/02/2017 3:14 PM EDT Left message for pt to call back Jerri PRYOR [phone] * Telephone Encounter - Jonathan Roth MD - 12/01/2017 6:54 PM EDT Can we book him for 12/22/17 at 130 If pt does not want to wait that long if possible book on 12/13/17 in one of the hold spots * Telephone Encounter - Renetta Arceo C.M.A. - 11/29/2017 2:35 PM EDT Spoke with pt, knows to bead picker DVD and referral was placed. He would like to speak with you about physical, I told him I could book it but wasn't happy with the wait. Please advise * Telephone Encounter - Jonathan Roth MD - 11/28/2017 6:12 PM EDT Order has been placed please inform the patient he needs to come In to bead picker a dvd that explains the pros and cons of the procedure (gasro requires this prior to scheduling the colonoscopy) * Telephone Encounter - Jesica Saavedra - 11/27/2017 8:38 AM EDT Patient would like to schedule a colonoscopy. Can you place referral? documented in this encounter Plan of Treatment Not on file documented as of this encounter Visit Diagnoses Diagnosis Other specified counseling- Primary documented in this encounter Additional Health Concerns Infection Onset Date Last Indicated Resolved Time COVID-19 09/27/2023 09/28/2023 documented as of this encounter Care Teams Packing Shed Supervisor Relationship Specialty Start Date End Date Jonathan Roth MD [address] [place] [address] PCP - General 01/01/01 documented as of this encounter
--- OUTSIDE RECORDS SUMMARY | 2025-02-26 21:45 | XMS_ITS | Encounter Summary ---
Author Organization [facility] Address [address] [place] [address] Care Team Providers Care Textile Dyer Name Role Phone Jonathan Roth MD Primary Care Provider [phone] Encounter Details Date Type Department Care Team Description 05/24/2023 Drawer In Plain Loom Report Medical Records [address] [place] [address] Franky Becerra MD, MD Social History Tobacco [...] documented as of this encounter Care Teams Textile Dyer Relationship Specialty Start Date End Date Jonathan Roth MD [address] [place] [address] PCP - General 01/01/01 documented as of this encounter
--- OUTSIDE RECORDS SUMMARY | 2025-02-26 21:45 | XMS_ITS | Encounter Summary ---
Author Organization [facility] Address [address] [place] [address] Care Team Providers Care Engineering Patternmaker Name Role Phone Jonathan Roth MD Primary Care Provider Encounter Details Date Type Department Care Team Description 07/03/2018 Release of Information Medical Records [address] [place] [address] Abstract, Provider Social History Tobacco Use Types [...] documented as of this encounter Care Teams Engineering Patternmaker Relationship Specialty Start Date End Date Jonathan Roth MD [address] [place] [address] PCP - General 01/01/01 documented as of this encounter
--- OUTSIDE RECORDS SUMMARY | 2025-02-26 21:45 | XMS_ITS | Encounter Summary ---
Author Organization [facility] Address [address] [place] [address] Care Team Providers Care Apparel Manufacture Instructor Name Role Phone Jonathan Roth MD Primary Care Provider [phone] Reason for Visit * Reason Comments E-prescribe Rx Request Encounter Details Date Type Department Care Team Description 01/26/2023 Refill Nephrology [facility] [address] [place] [address] Rhett Vila MD [address] [place] [phone] E-prescribe Rx Request Social History Tobacco Use Types Packs/Day Years [...] documented as of this encounter Care Teams Apparel Manufacture Instructor Relationship Specialty Start Date End Date Jonathan Roth MD [address] [place] [address] PCP - General 01/01/01 documented as of this encounter
--- OUTSIDE RECORDS SUMMARY | 2025-02-26 21:45 | XMS_ITS | Encounter Summary ---
Author Organization [facility] Address [address] [place] [address] Care Team Providers Care Hose Wrapper Name Role Phone Jonathan Roth MD Primary Care Provider [phone] Reason for Visit * Reason Onset Date Comments REFERRAL 01/04/2018 Encounter Details Date Type Department Care Team Description 01/04/2018 Telephone Gastroenterology - [address] [address] Rober Cole MD REFERRAL Social History Tobacco [...] encounter Miscellaneous Notes * Telephone Encounter - Rober Cole MD - 01/04/2018 5:39 PM EDT Noted. * Telephone Encounter - Jesica Saavedra - 01/04/2018 12:04 PM EDT Referral has been changed to external. Please notify patient that he will be scheduled for his colonoscopy at the hospital * Telephone Encounter - Rober Cole MD - 01/04/2018 11:24 AM EDT Chart reviewed, multiple medical problems, he should have colonoscopy performed at the hospital with monitored anesthesia care. * Telephone Encounter - Jesica Saavedra - 01/04/2018 8:18 AM EDT Patient was referred for a screening colonoscopy. Please review problem list. Should patient be scheduled at the hospital? Dr Cole did his colonoscopy. documented in this encounter Plan of Treatment Not on file documented as of this encounter Visit Diagnoses Not on filedocumented in this encounter Additional Health Concerns Infection Onset Date Last Indicated Resolved Time COVID-19 09/27/2023 09/28/2023 documented as of this encounter Care Teams Hose Wrapper Relationship Specialty Start Date End Date Jonathan Roth MD [address] [place] [address] PCP - General 01/01/01 documented as of this encounter
--- OUTSIDE RECORDS SUMMARY | 2025-02-26 21:45 | XMS_ITS | Encounter Summary ---
Author Organization [facility] Address [address] [place] [address] Care Team Providers Care Communications Technologist Name Role Phone Jonathan Roth MD Primary Care Provider Encounter Details Date Type Department Care Team Description 06/08/2018 Pt. Non Urgent Medical Question Adult Medicine [address] [phone] Jonathan Roth MD [address] [place] [address] Social History Tobacco Use Types Packs/Day Years [...] as of this encounter Progress Notes * Diana Stratton M.A. - 06/08/2018 8:38 AM ESTFrom: David Ritchie To: Jonathan Roth MD Sent: 06/08/2018 8:01 AM EST Subject: Pulmonary Function Test Dr Roth part of my testing for [facility] is a pulmonary function test could you also set me up for this test. Do I have to tell everyone that the information needs to be on a disc. PS my appointment with [place] is the 06 of July and they would like all the information 2 weeks before documented in this encounter Plan of Treatment Not on file documented as of this encounter Visit Diagnoses Not on filedocumented in this encounter Additional Health Concerns Infection Onset Date Last Indicated Resolved Time COVID-19 09/27/2023 09/28/2023 documented as of this encounter Care Teams Communications Technologist Relationship Specialty Start Date End Date Jonathan Roth MD [address] [place] [address] PCP - General 01/01/01 documented as of this encounter
--- OUTSIDE RECORDS SUMMARY | 2025-02-26 21:45 | XMS_ITS | Encounter Summary ---
Author Organization [facility] Address [address] [place] [address] Care Team Providers Care Epic Director Name Role Phone Jonathan Roth MD Primary Care Provider [phone] Encounter Details Date Type Department Care Team Description 10/13/2023 Pt. Non Urgent Medical Question Endocrinology - [address] [address] Daja Starkey MD [address] [place], [place] [phone] Social History Tobacco Use Types Packs/Day Years [...] encounter Miscellaneous Notes * Telephone Encounter - Any Soto L.P.N. - 10/13/2023 1:05 PM EDTFrom: Brian Ritchie To: Suzy Starkey Sent: 10/13/2023 1:04 PM EDT Subject: Shot I have been trying to find out what is going on why I haven???t had the shot that was requested by [facility] could someone please let me know what is going on documented in this encounter Plan of Treatment Not on file documented as of this encounter Visit Diagnoses Not on filedocumented in this encounter Additional Health Concerns Infection Onset Date Last Indicated Resolved Time COVID-19 09/27/2023 09/28/2023 documented as of this encounter Care Teams Epic Director Relationship Specialty Start Date End Date Jonathan Roth MD [address] [place] [address] PCP - General 01/01/01 documented as of this encounter
--- OUTSIDE RECORDS SUMMARY | 2025-02-26 21:45 | XMS_ITS | Encounter Summary ---
Author Organization [facility] Address [address] [place] [address] Care Team Providers Care Door Glass Installer Name Role Phone Jonathan Roth MD Primary Care Provider [phone] Encounter Details Date Type Department Care Team (Late Contact Info) Description 03/28/2024 Lab Requisition [facility] - Main Lab [address] [facility] [place] [address] Wes Zacarias PA [address] [place] [address] Gross hematuria Social History Tobacco Use Types Packs/Day Years Used Date Smoking Tobacco: Former Cigarettes 4 Q uit: 04/10/1988 Smokeless Tobacco: Never Alcohol Use Standard Drinks/Week Comments No 0 (1 standard drink = 0.6 oz pur e alcohol) Sex and Gender Information Value Date Recorded Sex Assigned at Not on file Legal Sex Male 6:52 AM EST Gender Identity Not on file Sexual Orientation Not on file documented as of this encounter Plan of Treatment Upcoming Encounters Date Type Department Care Team (Late Contact Info) Description 03/03/2025 2:00 PM EST Office Visit Vascular Surgery - [place] [address] [place] [address] Marni Roth PA [address] [facility] [address] [place] [address] 06/17/2025 2:00 PM EDT Office Visit Nephrology - [place] [address] [place] [address] Rhett Vila MD [address] [place] [address] 07/25/2025 1:20 PM EDT Office Visit Endocrinology - [place] [address] [place] [address] Petey Davalos MD [address] [place], [place] documented as of this encounter Goals [...] test bilaterally documented as of this encounter Procedures Procedure Name Priority Date/Time Associated Diagnosis Comments AP OUTSIDE CONSULT Routine 03/22/2024 12 :00 AM EST Gross hematuria documented in this encounter Results * Anatomic pathology outside consult (03/22/2024 12:00 AM EST) Final Diagnosis Urine, Voided ([id number]): Few atypical urothelial cells. Results of UroVysion fluorescence in situ hybridization (FISH) testing: CEP3: Normal CEP7: Normal CEP17: Normal LSI 9p21: Normal Interpretation: Normal profile Controls stained appropriately. Note: The results are intended as a screening device and should be interpreted in association with other clinical and pathological findings. 04/16/2024 11:16 AM EST [facility] ([facility]) [facility] Clinical Information Gross hematuria R31.0 [id number] Cytology/Urine FISH (now) 04/16/2024 11:16 AM [facility] Gross Description A. Urine, Voided, : [id number] Received is one ThinPrep slide for cytology screen and one ThinPrep slide for UroVysion FISH 04/16/2024 11:16 AM [facility] Disclaimer Unless otherwise specified, all tissue is 10% NB formalin fixed and paraffin embedded. Technical pathology services provided by [facility] at [address] [facility] [address] [place] [address] (CLIA #[id number]/Ashley Dubois MD, Airplane Pilot Photogrammetry) 04/16/2024 11:16 AM [facility] Tissue Urine specimen from urethra / Unknown 03/22/2024 03/28/2024 4:05 PM EST us [facility] PATHOLOGY ORDERABLES Final Result [facility] [address] [place] [address], documented in this encounter Visit Diagnoses Diagnosis Gross hematuria documented in this encounter Care Teams Door Glass Installer Relationship Specialty Start Date End Date Jonathan Roth MD [address] [place] [address] PCP - General Internal Medicine 02/13/24 documented as of this encounter
--- OUTSIDE RECORDS SUMMARY | 2025-02-26 21:46 | XMS_ITS | Encounter Summary ---
Author Organization [facility] Address [address] [place] [address] Care Team Providers Care Appeals Specialist Name Role Phone Jonathan Roth MD Primary Care Provider [phone] Encounter Details Date Type Department Care Team Description 10/01/2012 Supervisor Volunteer Services Report Medical Records [address] [place] [address] Abstract, Provider Social History Tobacco Use Types Packs/Day Years Used Date Smoking Tobacco: Former Cigarettes 4 15 Q uit: 04/10/1988 Cigars Smokeless Tobacco: Former Alcohol Use Standard Drinks/Week Comments No 0 [...] documented as of this encounter Care Teams Appeals Specialist Relationship Specialty Start Date End Date Jonathan Roth MD [address] [place] [address] PCP - General 01/01/01 documented as of this encounter
--- OUTSIDE RECORDS SUMMARY | 2025-02-26 21:46 | XMS_ITS | Encounter Summary ---
Author Organization [facility] Address [address] [place] [address] Care Team Providers Care Outreach Assistant Name Role Phone Jonathan Roth MD Primary Care Provider [phone] Encounter Details Date Type Department Care Team Description 06/19/2013 Cider Maker Report Medical Records [address] [place] [address] Abstract, Provider Social History Tobacco Use Types [...] documented as of this encounter Care Teams Outreach Assistant Relationship Specialty Start Date End Date Jonathan Roth MD [address] [place] [address] PCP - General 01/01/01 documented as of this encounter
--- OUTSIDE RECORDS SUMMARY | 2025-02-26 21:46 | XMS_ITS | Encounter Summary ---
Author Organization [facility] Address [address] [place] [address] Care Team Providers Care Senior Oracle Pl Sql Developer Name Role Phone Jonathan Roth MD Primary Care Provider [phone] Encounter Details Date Type Department Care Team Description 04/19/2014 Transfer Records Medical Records 4 [place] [address] Abstract, Provider Social History Tobacco Use Types [...] documented as of this encounter Care Teams Senior Oracle Pl Sql Developer Relationship Specialty Start Date End Date Jonathan Roth MD [address] [place] [address] PCP - General 01/01/01 documented as of this encounter
--- OUTSIDE RECORDS SUMMARY | 2025-02-26 21:46 | XMS_ITS | Encounter Summary ---
Author Organization [facility] Address [address] [place] [address] Care Team Providers Care Bending Press Operator Name Role Phone Jonathan Roth MD Primary Care Provider [phone] Encounter Details Date Type Department Care Team Description 12/15/2010 Clinical Research Assistant Report Medical Records [address] [place] [address] Franci Walters Social History Tobacco Use Types Packs/Day Years [...] documented as of this encounter Care Teams Bending Press Operator Relationship Specialty Start Date End Date Jonathan Roth MD [address] [place] [address] PCP - General 01/01/01 documented as of this encounter
--- OUTSIDE RECORDS SUMMARY | 2025-02-26 21:46 | XMS_ITS | Encounter Summary ---
Author Organization [facility] Address [address] [place] [address] Care Team Providers Care Project Geophysicist Name Role Phone Jonathan Roth MD Primary Care Provider [phone] Reason for Visit * Reason Onset Date Comments APPOINTMENT 06/01/2020 Encounter Details Date Type Department Care Team Description 06/01/2020 Telephone Radiology - [place] [address] [place] [address] [phone] Du Mata MD [address] [place] [address] APPOINTMENT Social History Tobacco Use Types Packs/Day Years [...] Exposure Response Date Recorded In the last month, have you been in contact with someone who was confirmed or suspected to have Coronavirus / COVID-19? No / Unsure 05/28/2020 9:27 AM EST documented as of this encounter Miscellaneous Notes * Telephone Encounter - Carlita BeckmanZeny - 06/09/2020 9:34 AM EST Patient called stated that he requested his lab work to go to [facility] but wanna his US done in [place]. Please call patient and schedule appointment. * Telephone Encounter - Maggie Barker - 06/01/2020 1:41 PM EST Patient states he would like to have SONO RETROPERITONEAL COMPLETE Ultrasound done at [facility]. Pleasereview and advise. documented in this encounter Plan of Treatment Not on file documented as of this encounter Visit Diagnoses Not on filedocumented in this encounter Additional Health Concerns Infection Onset Date Last Indicated Resolved Time COVID-19 09/27/2023 09/28/2023 documented as of this encounter Care Teams Project Geophysicist Relationship Specialty Start Date End Date Jonathan Roth MD [address] [place] [address] PCP - General 01/01/01 documented as of this encounter
--- OUTSIDE RECORDS SUMMARY | 2025-02-26 21:46 | XMS_ITS | Encounter Summary ---
Author Organization [facility] Address [address] [place] [address] Care Team Providers Care Internet Programmer Name Role Phone Jonathan Roth MD Primary Care Provider [phone] Reason for Visit * Reason Onset Date Comments medication problems 12/04/2006 Encounter Details Date Type Department Care Team Description 12/04/2006 Telephone Adult Medicine [address] [phone] Jonathan Roth MD [address] [place] [address] medication problems Social History Tobacco Use Types Packs/Day Years [...] encounter Miscellaneous Notes * Telephone Encounter - Kaitlynn Greer - 12/04/2006 5:42 PM EDT pt calling about script very upset please take care of this first thing in the am. * Telephone Encounter - Gretta Yan - 12/04/2006 2:24 PM EDT What is the name of the medication patient is having a problem with?: Levaquin What is the problem?: not covered by insurance they will cover cipro or avolox Is the patient calling about the problem? NO If the patient is not the caller who is? [facility] Is this a NEW medication?: YES How long has the patient been taking this medication? n/a Who prescribed this medication for the patient? Dr Roth Who is patients PCP?: Jonathan Roth MD Payor: [facility] F[facility] Plan: IRL GamingO $10 N RONALD Product Type: IRL GamingO [id number] documented in this encounter Plan of Treatment Not on file documented as of this encounter Visit Diagnoses Not on filedocumented in this encounter Additional Health Concerns Infection Onset Date Last Indicated Resolved Time COVID-19 09/27/2023 09/28/2023 documented as of this encounter Care Teams Internet Programmer Relationship Specialty Start Date End Date Jonathan Roth MD [address] [place] [address] PCP - General 01/01/01 documented as of this encounter
--- OUTSIDE RECORDS SUMMARY | 2025-02-26 21:46 | XMS_ITS | Data Portability ---
Author Organization [place] [facility] Address [address] [place] [address] Care Team Providers Care Acid Tester Name Role Phone MEMO CASAREZ Referring Provider [phone] Assessment Encounter Date Assessment Date Assessment LastModified by Organization Details LastModified Time 12/02/2024 12/02/2024 Follow up with referring provider.Hearing aid candidate pending medical clearance and patient interest. May help alleviate tinnitus. [email or web address] Not available 12/02/2024 11:06:21 12/02/2024 12/02/2024 69-year-old male presents for evaluation of tinnitus. Otologic exam is unremarkable today. Audiometric testing shows sloping sensorineural hearing loss bilaterally with normal tympanogram. Hearing loss is symmetrical. Results were reviewed in detail with patient. We reviewed the pathophysiology of tinnitus in detail and the relationship between tinnitus and hearing loss. We discussed masking techniques. He would certainly be a good candidate for amplification. He was provided medical clearance along with a copy of his hearing test. He will shop around and return in 1 year for repeat hearing test. Return sooner for any acute changes in hearing. [email or web address] Not available 12/02/2024 11:39:07 Plan of Treatment Reminders Order Date Submit Date Provider Last Modified By Organization Details Last Modified Time Details Appointments Hearing Test 2025 09:00A M Hearing Test Not available Not available Not available Establish ed 15 2025 09:30A M SHAILA MADRIGAL PA-C Not available Not available Not available Lab None recorded. Referral None recorded. Procedures None recorded. Surgeries None recorded. Imaging None recorded. Medication Orders None recorded. Patient TargetsNo targets recorded. Patient InstructionsNo instructions recorded. Reason for Referral None Reported. Results Created Date Observation Date Name Description Value Unit Range Abnormal Flag Note LastModifiedBy Organization Detail LastModifiedTime 12/03/19 audio gram No observ ation record ed. BARCODE Not Available 2024 16:55:27 Result Notes None recorded. Problems Name Problem SNOMED Code Status Onset Date Resolution Date Notes Provider Name and Address Organization Details Recorded Time Sensorineur al hearing loss of bilateral ears 939626105 Active 2024 AVILASERA CAT, AUD 100 [facility],[address] [address], [place], [address], [facility] - [facility] [place] 10:59:01 Bilateral tinnitus 0017849341063 Active 2024 SHAILA MADRIGAL PA-C 100 [facility],[address] [address], [place], [address], [facility] - [facility] [place] 11:39:14 Problem Notes None recorded. Procedures Surgical History Date Name Laterality Status Provider Name and Address Organization Details Recorded Time 12/03/19 Comp Audio with Tymps - 64700 & 11120 completed AVILA CAT, AUD 100 [facility],[address], [address], [facility] - [facility] [place] 12/02/2024 10:58:34 transplantation of heart completed Gladis Marley [place] - [facility] [place] 12/02/2024 11:26:50 transplant of lung completed Gladis Marley [place] - [facility] [place] 12/02/2024 11:27:06 Imaging Results None recorded. Procedure Notes None recorded. Medical Equipment None Reported. Allergies No known drug allergies Medications Name Sig Start Date Stop Date Status Note LastModified by Organization Details LastModified Time clonidine 0.1 mg/24 hr weekly transdermal patch APPLY 1 PATCH ONCE A WEEK active Not Available Not Available No t Available azithromycin 250 mg tablet TAKE 1 TABLET BY MOUTH EVERY DAY active Not Available Not Available No t Available metoprolol succinate ER 100 mg tablet,exten ded release 24 hr TAKE 1 TABLET BY MOUTH EVERY DAY active Not Available Not Available No t Available prednisone 5 mg tablet TAKE 1 TABLET BY MOUTH EVERY DAY active Not Available Not Available No t Available sulfamethoxa zole 800 mg-trimethop rim 160 mg tablet TAKE 1 TABLET BY MOUTH EVERY MONDAY, MONDAY AND MONDAY active Not Available Not Available N ot Available magnesium oxide 400 mg (241.3 mg magnesium) tablet TAKE 1 TABLET BY MOUTH EVERY DAY 02/03 active Not Available Not Available Not Available amlodipine 10 mg tablet TAKE 1 TABLET BY MOUTH EVERY DAY active Not Available Not Available No t Available pantoprazole 40 mg tablet,delay ed release TAKE 1 TABLET BY MOUTH TWICE A DAY BEFORE MEALS active Not Available Not Available No t Available bumetanide 1 mg tablet TAKE 1 TABLET (1 MG TOTAL) BY MOUTH EVERY OTHER DAY. active Not Available Not Available No t Available folic acid 1 mg tablet TAKE 1 TABLET BY MOUTH EVERY DAY active Not Available Not Available No t Available tacrolimus 1 mg capsule, immediate-re lease TAKE 2 CAPSULES BY MOUTH EVERY MORNING AND 1 CAPSULE EVERY EVENING. active Not Available Not Available No t Available calcitriol 0.25 mcg capsule TAKE 1 CAPSULE BY MOUTH EVERY OTHER DAY active Not Available Not Available No t Available tacrolimus 0.5 mg capsule, immediate-re lease TAKE 1 CAPSULE BY MOUTH EVERY DAY IN THE MORNING active Not Available Not Available No t Available ezetimibe 10 mg tablet TAKE 1 TABLET BY MOUTH EVERY DAY active Not Available Not Available No t Available tadalafil 5 mg tablet TAKE ONE TABLET BY MOUTH EVERY DAY active Not Available Not Available No t Available Eliquis 5 mg tablet TAKE 1 TABLET BY MOUTH TWICE A DAY active Not Available Not Available No t Available Eliquis DVT-PE Treatment 30-Day Starter 5 mg (74 tablets) in dose pack TAKE 2 TABLETS BY MOUTH 2 TIMES A DAY FOR 6.5 DAYS (13 DOSES) THEN 1 TABLET TWICE A DAY INDEFINITEL Y active Not Available Not Available No t Available Vitals Date Recorded Body height Body mass index (BMI) Body weight Provider Name and Address Organization Details Last Updated DateTime 12/02/2024 170.18 cm 36 kg/m2 943702.25 g Gladis Marley [place] - [facility] 12/02/2024 11:25:49 Social History None recorded. Functional Status Question Answer Note LastModified by Organization D etails LastModified Time What is your level of alcohol consumption? None [email or web address] Information not available 12/02/2024 Mental Status None recorded. Family History Nothing Reported. Medical History Condition Response Allergies/Hayfever N Heart Problems Y Anxiety N Tonsil Infections N Emphysema N Migraines N Thyroid Problems N COPD N Depression N Developmental Delay N Glaucoma N Nasal or Sinus Problems N Anemia N Immune System Disorder N Anesthesia Complications N Heart Attack ([place]) N Other Skin Condition N Diabetes N Rhinitis N Bleeding Disorder Y Food Allergy N Hearing Loss N Arthritis N Hyperlipidemia N Cancer N Stroke N Dementia N Nasal polyps N Asthma N Sleep Disorder N High Cholesterol N GERD/Reflux N Liver Disease N Headaches N Fibromyalgia N Hypertension N Speech Delay N Kidney Disease Y Past Encounters Encounter ID Performer Location Encounter Start Date Encounter Closed Date Diagnosis/Indication Diagnosis SNOMED-CT Code Diagnosis ICD10 Code Diagnosis IMO Codes Diagnosis Note [id number] SHAILA MADRIGAL PA-C [facility] [address] [address] 12/02/2024 10:27:16 12/02/2024 11:43:29 Sensorineural hearing loss of bilateral ears 779090486 H90.3 [id number] Bilateral tinnitus 8[address] 102 H93.13 [id number] CLIFTON TURNER [facility] [address] [address] 12/02/2024 10:58:27 12/15/2024 14:15:52 Sensorineural hearing loss of bilateral ears 332847092 H90.3 [id number] Audiologic al evaluation results: Right ear: Normal sloping to moderate sensorineu ral hearing loss with excellent word recognitio n. Left ear: Normal sloping to mild sensorineu ral hearing loss with excellent word recognitio n. Tympanomet ry: Right Ear:Type A Left Ear:Type A Health Concerns Section Related Observation LastModified by Organization Detai ls LastModified Time None Recorded Concern Status LastModified by Organization Details LastModified Time None Recorded Advance Directives Directive None Recorded Payers Insurance Date Sequence Insurance Name Policy Number Policy Ballard Covered Member ID Ballard Member ID Guarantor Name 02/11/2025 1 [place]IC[place]: [employer] David Ritchie [id number] David Ritchie 02/11/2025 2 [place] [facility] David Ritchie [id number] David Rtichie Notes Date Note Type Note Provider Name and Address Organization Details Recorded Time 12/02/2024 text/html ROS as noted in the HPI 69-year-old male presents for evaluation of bilateral tinnitus. Patient states he has began to notice the tinnitus over the last 6 months to 1 year on both sides. Has also been noticing some hearing loss. Is interested in obtaining hearing aids. SHAILA MADRIGAL PA-C [address], [address], [facility] - [facility] 12/02/2024 11:39:40 12/02/2024 text/html Audiological Evaluation HPIReported by PatientHearing LossFor hearing loss perceived, patient reportshearing loss in both ears (no differences noted between ears)but reportsgradual onset.TinnitusFor tinnitus reported, patient reportsboth ears. For sounds like, patient reportsbuzzing. CLIFTON TURNER [address] [address], [place], [address], [facility] 12/02/2024 11:06:32
--- OUTSIDE RECORDS SUMMARY | 2025-02-26 21:46 | XMS_ITS | Encounter Summary ---
Author Organization [facility] Address [address] [place] [address] Care Team Providers Care Sales Support Technician Name Role Phone Jonathan Roth MD Primary Care Provider [phone] Reason for Visit * Reason Onset Date Comments TEST RESULTS 12/06/2006 Encounter Details Date Type Department Care Team Description 12/06/2006 Telephone Adult Medicine [facility] [address] [place] [phone] Jonathan Roth MD [address] [place] [address] TEST RESULTS Social History Tobacco Use Types [...] Miscellaneous Notes * Telephone Encounter - Lisa Teixeira Lpn - 12/06/2006 4:10 PM EDT results in, no letter sent, will need to wait for Dr. Roth's return tomorrow * Telephone Encounter - Gretta Yan - 12/06/2006 3:34 PM EDT Inform patient: ANY URGENT OR ABNORMAL RESULTS WIILL RESULT IN A CALL BACK TO THE PATIENT FARIDEH. Type of test: :Cat-scam Date test was performed: 12/04/06 Where was the test performed: [facility] Who ordered this test?: Jonathan Roth MD Is the doctor here today?: NO Can the message wait until the doctor returns?: NO IF PATIENT'S PCP IS NOT IN INSTRUCT [...] documented as of this encounter Care Teams Sales Support Technician Relationship Specialty Start Date End Date Jonathan Roth MD [address] [place] [address] PCP - General 01/01/01 documented as of this encounter
--- OUTSIDE RECORDS SUMMARY | 2025-02-26 21:46 | XMS_ITS | Encounter Summary ---
Author Organization [facility] Address [address] [place] [address] Care Team Providers Care Continuous Process Machine Operator Name Role Phone Jonathan Roth MD Primary Care Provider [phone] Encounter Details Date Type Department Care Team Description 05/25/2022 Orders Only Adult Medicine [address] [address] Jonathan Roth MD [address] [place] [address] Obstructive sleep apnea syndrome; Obstructive sleep apnea Social History Tobacco Use Types Packs/Day Years [...] suspected to have Coronavirus/COVID-19? No / Unsure 05/23/2022 4:02 PM EST documented as of this encounter Plan of Treatment Not on file documented as of this encounter Procedures Procedure Name Priority Date/Time Associated Diagnosis Comments TREATMENT SLEEP STUDY-16 CHANNEL Routine 05/03/2022 Obstructive sleep apnea syndrome Obstructive sleep apnea documented in this encounter Results * TREATMENT SLEEP STUDY-16 CHANNEL (05/03/2022) Jonathan Roth MD PULMONOLOGY documented in this encounter Visit Diagnoses Diagnosis Obstructive sleep apnea syndrome Obstructive sleep apnea (adult) (pediatric) Obstructive sleep apnea Obstructive sleep apnea (adult) (pediatric) documented in this encounter Additional Health Concerns Infection Onset Date Last Indicated Resolved Time COVID-19 09/27/2023 09/28/2023 documented as of this encounter Care Teams Continuous Process Machine Operator Relationship Specialty Start Date End Date Jonathan Roth MD [address] [place] [address] PCP - General 01/01/01 documented as of this encounter
--- OUTSIDE RECORDS SUMMARY | 2025-02-26 21:46 | XMS_ITS ---
Author Name [facility] Organization Unknown Care Team Organization Name Specialty Phone Email Start Date End Da te [facility] 11/27/2024 [facility] MEMO LEIDA Primary Care 02/15/2022
--- OUTSIDE RECORDS SUMMARY | 2025-02-26 21:46 | XMS_ITS | Continuity of Care Document ---
Author Organization [place] [facility], [facility] Address [address] [place] [address] Care Team Providers Care Barrel Turner Name Role Phone MEMO CASAREZ Referring Provider [phone] Assessment Encounter Date Assessment Date Assessment LastModified by Organization Details LastModified Time 12/02/2024 12/02/2024 Follow up with referring provider.Hear ing aid candidate pending medical clearance and patient interest. May help alleviate tinnitus. [email or web address] Not available 12/02/2024 11:06:21 Plan of Treatment Reminders Order Date Submit [...] Sensorineur al hearing loss of bilateral ears 027430717 Active 2024 CLIFTON TURNER [address] [address], [place], [address] [place] [address] - [facility] 10:59:01 Bilateral tinnitus 7935848679760 Active 2024 SHAILA MADRIGAL PA-C 100 [facility], [place], [address], [place] - [facility] [place] 11:39:14 Problem Notes None recorded. Procedures Surgical History Date Name Laterality Status Provider Name and Address Organization Details Recorded Time 12/03/19 Comp Audio with Tymps - 39322 & 05828 completed CLIFTON TURNER 100 [facility], [place], [address], [facility] - [facility] [place] 12/02/2024 10:58:34 transplantation of heart completed Gladis Marley [place] - [facility] [place] 12/02/2024 11:26:50 transplant of lung completed Gladis Marley [place] - [facility] [place] 12/02/2024 11:27:06 Imaging Results None recorded. Procedure [...] Updated DateTime 12/02/2024 170.18 cm 36 kg/m2 310915.25 g Gladis Marley [facility] 12/02/2024 11:25:49 Social History None recorded. Functional Status Question Answer Note LastModified by Organization D etails LastModified Time What is your level of alcohol consumption? None [email or web address] Information not available 12/02/2024 Mental Status None recorded. Family History Nothing Reported. Medical History Condition Response Allergies/Hayfever N Heart Problems Y Anxiety N Tonsil Infections N Emphysema N Migraines N Thyroid Problems N Glaucoma N Depression N COPD N Developmental Delay N Nasal or Sinus Problems N Anemia N Immune System Disorder N Anesthesia Complications N Heart Attack ([place]) N Other Skin Condition N Diabetes N Rhinitis N Bleeding Disorder Y Food Allergy N Arthritis N Hearing Loss N Hyperlipidemia N Cancer N Stroke N Dementia N Nasal polyps N Asthma N Sleep Disorder N GERD/Reflux N High Cholesterol N Liver Disease N Headaches N Fibromyalgia N Hypertension N Speech Delay N Kidney Disease Y Past Encounters Encounter ID Performer Location Encounter Start Date Encounter Closed Date Diagnosis/Indication Diagnosis SNOMED-CT Code Diagnosis ICD10 Code Diagnosis IMO Codes Diagnosis Note [id number] SHAILA MADRIGAL PA-C [facility] [address] [address] 12/02/2024 10:27:16 12/02/2024 11:43:29 Sensorineural hearing loss of bilateral ears 574997686 H90.3 [id number] Bilateral tinnitus [address] 102 H93.13 [id number] CLIFTON TURNER [facility] [address] [address] 12/02/2024 10:58:27 12/15/2024 14:15:52 Sensorineural hearing loss of bilateral ears 039130041 H90.3 [id number] Audiologic al evaluation results: Right ear: Normal [...] by Organization Details LastModified Time None Recorded Payers Encounter Date Sequence Insurance Name Policy Number Policy Ballard Covered Member ID Ballard Member ID Guarantor Name 12/02/2024 1 [place]IC[place] [employer] David Ritchie [id number] David Ritchie Notes Date Note Type Note Provider Name [...] in obtaining hearing aids. SHAILA MADRIGAL PA-C [address] [place] [address], [address], [facility] - [facility] 12/02/2024 11:39:40 12/02/2024 text/html Audiological Evaluation HPIReported by PatientHearing LossFor hearing loss perceived, patient reportshearing loss in both ears (no differences noted between ears)but reportsgradual onset.TinnitusFor tinnitus reported, patient reportsboth ears. For sounds like, patient reportsbuzzing. CLIFTON TURNER 100 [facility], [place], [address], [facility] - [facility] 12/02/2024 11:06:32
--- OUTSIDE RECORDS SUMMARY | 2025-02-26 21:46 | XMS_ITS | Encounter Summary ---
Author Organization [facility] Address [address] [place] [address] Care Team Providers Care Founding Partner Name Role Phone Jonathan Roth MD Primary Care Provider [phone] Encounter Details Date Type Department Care Team Description 03/14/2022 Orders Only Adult Medicine [address] [address] Jonathan Roth MD [address] [place] [address] Obstructive sleep apnea syndrome Social History Tobacco Use Types Packs/Day Years [...] suspected to have Coronavirus/COVID-19? No / Unsure 03/17/2022 1:16 PM EST documented as of this encounter Plan of Treatment Not on file documented as of this encounter Procedures Procedure Name Priority Date/Time Associated Diagnosis Comments SLEEP STUDY-FULL NEURO 16 CHANNEL Routine 03/08/2022 Obstructive sleep apnea syndrome documented in this encounter Results * SLEEP STUDY-FULL NEURO 16 CHANNEL (03/08/2022) Jonathan Roth MD PULMONOLOGY documented in this encounter Visit Diagnoses Diagnosis Obstructive sleep apnea syndrome Obstructive sleep apnea (adult) (pediatric) documented in this encounter Additional Health Concerns Infection Onset Date Last Indicated Resolved Time COVID-19 09/27/2023 09/28/2023 documented as of this encounter Care Teams Founding Partner Relationship Specialty Start Date End Date Jonathan Roth MD [address] [place] [address] PCP - General 01/01/01 documented as of this encounter
--- OUTSIDE RECORDS SUMMARY | 2025-02-26 21:46 | XMS_ITS | Clinical Summary ---
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 Overview (05/31/2014): Hepatitis A; ~ 1970 Pulmonary hypertension 12/17/2010 Overview (05/31/2014): Pulmonary hypertension Asthma 12/17/2010 Overview (05/31/2014): Asthma History of cholecystectomy 12/17/2010 Overview (05/31/2014): Cholecystectomy Obesity 03/18/2010 Overview (05/31/2014): Obesity Allergic rhinitis 03/18/2010 Overview (05/31/2014): Allergic rhinitis Erythrocytosis 03/18/2010 Overview (05/31/2014): Polycythemia Sarcoidosis 03/18/2010 Overview (05/31/2014): Sarcoidosis; *See attached note in LMR; s/p lymph node bx 1976 Immunizations Immunization Administration Dates Next Due Influenza, Unspecified Formulation 12/09/2010 Pneumococcal polysaccharide PPSV23 04/10/2007 Social History Tobacco Use Types Packs/Day Years Used Date Smoking Tobacco: Former Education Answer Date Recorded Are you interested in more education? Not on carlitos e 08/04/2022 Are you concerned about learning? Not on file 08/04/2022 No 08/04/2022 No 08/04/2022 Digital Access Answer Date Recorded No 09/05/2022 No 09/05/2022 Reliable internet access at home? Not on file 09/05/2022 Device with a working camera? Not on file Sex and Gender Information Value Date Recorded Sex Assigned at Not on file Legal Sex Male 7:31 PM EST Gender Identity Not on file Sexual Orientation Not on file Last Filed Vital Signs Vital Sign Reading Time Taken Comments Blood Pressure 120/88 12/21/2012 11:54 AM EDT Pulse 103 12/21/2012 11:54 AM EDT Temperature 36.2 C (97.1 F) 12/21/2012 11:54 AM EDT Respiratory Rate 14 09/22/2011 3:01 PM EDT Oxygen Saturation - - Inhaled Oxygen Concentration - - Weight 119.3 kg (263 lb) 09/22/2011 4:04 PM EDT Height 170.2 cm (5' 7 ) 05/12/2011 1:07 PM EST Body Mass Index 41.19 05/12/2011 1:07 PM EST Plan of Treatment Health Maintenance Due Date Last Done Comments DEPRESSION SCREENING 1966 SMOKING Hx and SMOKELESS TOBACCO SCREENING 1967 COLOGUARD 1999 COLONOSCOPY 1999 COLORECTAL CANCER SCREENING 1999 FIT TEST 1999 FOBT 1999 SIGMOIDOSCOPY 1999 VIRTUAL COLONOSCOPY 1999 RSV VACCINE (1 - Risk 50-74 years 1-dose series) 01/24/2004 ZOSTER VACCINES (1 of 2) 01/24/2004 PNEUMOCOCCAL VACCINES (50+ years) (2 of 2 - PCV) 04/10/2008 04/10/2007, 04/20/2001 HEPATITIS A VACCINES (2 of 2 - Risk 2-dose series) 01/03/2013 07/03/2012 INFLUENZA VACCINE (#1) 2024 0, 01/12/2019, 01/08/2014, Additional history exists COVID-19 VACCINE (3 - season) 2024 06/28/2020, 05/31/2020 LIPID PANEL 07/18/2029 07/18/2024, 09/08, 03/16/2023, Additional history exists Adult Td,Tdap Booster 10/12/2032 10/12/2022 HEPATITIS C SCREENING Completed 12/15/2010 HIB VACCINES Aged Out No longer eligi ble based on patient's age to complete this topic MENINGOCOCCAL VACCINES (ACWY) Aged Out No longer eligible based on patient's age to complete this topic MENINGOCOCCAL VACCINES (B) Aged Out N o longer eligible based on patient's age to complete this topic Medical Devices Not on file Procedures Procedure Name Priority Date/Time Associated Diagnosis Comments HISTORICAL LAB Routine 02/17/2011 10:14 AM EST HISTORICAL LAB Routine 12/15/2010 5:43 PM EDT from Last 3 Months or Most Recently Relevant to Health Maintenance Results * (ABNORMAL) Historical Lab (02/17/2011 10:14 AM EST) Only the most recent of2 resultswithin the time period is included. GLUCOSE 94 70 - 100 mg/dL [facility] UREA N 24(A) 6 - 23 mg/dL [facility] CREATININE 1.52(A) 0.50 - 1.20 mg/dL [facility] eGFR 48 [facility] Comment: (Abnormal if <60 mL/min/1.73m2 If patient is black, multiply by 1.21) SODIUM 139 136 - 145 mmol/L [facility] POTASSIUM 3.9 3.4 - 5.0 mmol/L [facility] CHLORIDE 100 98 - 107 mmol/L [facility] TOTAL CO2 30 22 - 31 mmol/L [facility] CALCIUM 9.1 8.8 - 10.7 mg/dL [facility] CHOLESTEROL 136(A) 140 - 199 mg/dL [facility] TRIGLYCERIDES 89 35 - 150 mg/dL [facility] HDL 48 40 - 100 mg/dL [facility] CLDL 70 50 - 129 mg/dL [facility] VLDL 18 mg/dL [facility] ANION GAP 9 5 - 17 mmol/L [facility] 02/17/2011 10:1 4 AM EST Comment:BLOOD us Conversion Provider Not In Sys LAB BLOOD ORDERAB LES Final Result Performing Organization Address City/State/[facility] Co de Phone Number [address] [address] from Last 3 Months or Most Recently Relevant to Health Maintenance Insurance [employer] PPO [employer] P[employer] CARELINK PPO [employer] PPO CIGNA CARELINK PPO [employer]IG[employer] PPO [employer] PPO [employer] PPO [employer] PPO Care Teams School Janitor Relationship Specialty Start Date End Date Jonathan Roth MD [address] [place] [address] PCP - General 08/14/14 Additional Source Comments The information contained in this document represents components of the legal health record. It is not the complete legal health record.[facility]
--- OUTSIDE RECORDS SUMMARY | 2025-02-26 21:46 | XMS_ITS | Encounter Summary ---
Author Organization [facility] Address [address] [place] [address] Care Team Providers Care Taker Off Name Role Phone Jonathan Roth MD Primary Care Provider [phone] Encounter Details Date Type Department Care Team Description 04/05/2013 Hospital Medical Records [address] [place] [address] Kaitlynn Gomez PA-C [address] [place] [address] [phone] Social History Tobacco Use Types Packs/Day Years [...] documented as of this encounter Care Teams Taker Off Relationship Specialty Start Date End Date Jonathan Roth MD [address] [place] [address] PCP - General 01/01/01 documented as of this encounter
--- OUTSIDE RECORDS SUMMARY | 2025-02-26 21:46 | XMS_ITS | Clinical Summary ---
Author Organization [facility] Address [address] [place] [address] Care Team Providers Care Floral Designer Name Role Phone Jonathan Roth MD Primary Care Provider [phone] Allergies Active Allergy Reactions Severity Noted Date Comments Cats OTHER 01/11/2012 Mold OTHER 01/11/2012 Other (No Interaction Warnings) OTHER 06/2011 Trees Medications Medication Sig Dispensed Refills Start Date End Date Status aspirin (SB LOW DOSE ASA EC) 81 MG EC tablet Take 81 mg by mouth daily. 0 Active PredniSONE, Victoriano, 5 MG TABS Take 1 Tab by mouth daily. 0 Active folic acid (FOLVITE) 1 MG tablet Take 1 Tab by mouth daily. 0 06/28/2013 Active Multiple Vitamins-Minerals (CENTRUM SILVER ADULT 50+) Tab Take 1 tablet by mouth daily. 0 Active Magnesium 400 MG Cap Take 1 tablet by mouth 2 times daily. 0 Active sulfamethoxazole- trimethoprim (BACTRIM,SEPTRA) 400-80 MG per tablet Take 1 tablet.old by mouth every 72 hours. Monday & Monday & Monday 0 Active montelukast (SINGULAIR) 10 MG tablet Take 10 mg by mouth at bedtime. 0 Active pantoprazole (PROTONIX) 40 MG tablet Take 40 mg by mouth daily. 0 Active sildenafil (VIAGRA) 50 MG tablet Take 50 mg by mouth as needed. 0 Active Probiotic Product (PROBIOTIC OR)Indications:Sa rcoidosis,Congest tari heart failure, unspecified congestive heart failure chronicity, unspecified congestive heart failure type,History of lung transplant (HCC) Take by mouth. 0 Active tacrolimus (PROGRAF) 1 MG capsule Take 1 Capsule by mouth 2 times daily. 0 02/16/2018 Active polyethylene glycol-electrolyt es (NULYTELY) 420 g solution Take 4,000 mL by mouth once for 1 dose. 4000 mL 0 07/03/2020 Active cloNIDine 0.1 MG/24HR PATCH WEEKLYIndications :Chronic kidney disease, stage IV (severe) ([facility]),Benign hypertensive kidney disease with chronic kidney disease, stage 1-4 or unspecified chronic kidney disease Place 1 Patch onto the skin once a week. 13 Patch 3 06/20/2023 Active calcitRIOL (ROCALTROL) 0.25 MCG capsule Take 1 Capsule by mouth every other day. 45 Capsule 3 07/20/2023 Active metoprolol (TOPROL-XL) 100 MG 24 hr tablet Take 1 Tablet by mouth daily. 0 06/15/2023 Active Apixaban (Eliquis) 5 MG Tab Take 1 Tablet by mouth 2 times daily. 180 Tablet 1 08/24/2023 Active ezetimibe (ZETIA) 10 MG tablet TAKE 1 TABLET BY MOUTH EVERY DAY 90 Tablet 1 09/12/2023 Active Denosumab (Prolia) 60 MG/ML SolutionIndicatio ns:Osteoporosis without current pathological fracture, unspecified osteoporosis type Inject 60 mg into the skin Once. 1 mL 0 09/08/2023 Active amlodipine (Norvasc) 10 MG tabletIndications :Chronic kidney disease, stage IV (severe) ([facility]),Benign hypertensive kidney disease with chronic kidney disease, stage 1-4 or unspecified chronic kidney disease Take 1 Tablet by mouth daily. 90 Tablet 1 11/07/2023 Active Magnesium 400 MG Tab Take 1 Tablet by mouth daily. 30 Tablet 1 12/18/2023 Active magnesium oxide (MAG-OX) 400 MG tablet TAKE 1 TABLET BY MOUTH EVERY DAY 30 Tablet 5 02/01/2024 Active Magnesium Oxide 400 (240 MG) MG Tab Take 400 mg by mouth. 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 Obstructive sleep apnea syndrome 017 History of lung transplant 01/13/2017 Gastroparesis 07/30/2013 CHF (congestive heart failure) 4 Hepatitis B antibody positive 05/25/2012 Overview: E AB positive, Surface AB positive, undetectable blood DNA, normal LFT as of 2012. Gilbert syndrome 05/25/2012 Angiodysplasia of cecum 02/02/2012 History of colon polyps 02/02/2012 Overview: Small tubular adenoma at CN 02/02/2012. 05/27/2019: Surveillance colonoscopy; poor prep, inadequate exam, however negative to the mid ascending colon. Consider repeat 1 to 2 years. Pulmonary hypertension, secondary to carol coid 05/31/2010 Secondary polycythemia 02/12/2010 Sarcoidosis 02/18/2005 Obesity 02/18/2005 Allergic rhinitis 02/18/2005 Resolved Problems Problem Noted Date Resolved Date Hyperkalemia 11/03/2014 03/08/2018 Asthma 02/18/2005 07/28/2005 Immunizations Name Administration Dates Next Due COVID-19 (Moderna) 02/24/2021,06/28/2020, 021 Flu Vaccine 3 Yrs> Im 01/15/2018 Hep A Vacc, Ped/adol 3 Dose 01/01/2013,0 12/13/2012,07/03/2012,05/01 Hepatitis B > 19yrs 02/16/2022, 2,02/10/2011,01/12,12/29/2010 Hepatitis-A (>19YRS) 07/03/2012 Influenza (> 6 Months) 01/08/2014,2010,01/13/2010,01/10,01/17/2008,01/29/2007 Influenza vaccine high dose age 65 and over 01/09/2020 PPD-RBMG 12/21/2010 Pneumoccoccal(Adult) Polysac charide PPSV23 01/15/2018,05/01/2012,04/20/2001 Pneumococcal Conjugate PCV-13 10/06/2015 Tdap 10/12/2022 Family History Medical History Relation Name Comments Cancer of the Prostate Father Diabetes Mother Hypertension Mother CA Colon Negative Hx CAD Negative Hx no premature CA D Relation Name Status Comments Father Mother Social History Tobacco Use Types Packs/Day Years Used Date Smoking Tobacco: Former Cigarettes 4 15 Q uit: 04/10/1988 Cigars Smokeless Tobacco: Never Tobacco Cessation:Counseling Given: Not Answered Alcohol Use Standard Drinks/Week Comments No 0 (1 standard drink = 0.6 oz pur e alcohol) Sex Assigned at Date Recorded Male 02/07/2022 11:26 AM EDT Job Start Date Occupation Industry Not on file Not on file Not on file Last Filed Vital Signs Vital Sign Reading Time Taken Comments Blood Pressure 140/78 12/28/2023 3:07 PM EDT Pulse 76 12/28/2023 3:07 PM EDT Temperature 36.8 C (98.3 F) 12/28/2023 3:07 PM EDT Respiratory Rate 12 10/26/2023 10:42 AM EDT Oxygen Saturation 97% 07/04/2023 8:43 AM EDT Inhaled Oxygen Concentration - - Weight 105.9 kg (233 lb 8 oz) 11/02/2023 1:11 PM EDT Height 170.2 cm (5' 7 ) 11/02/2023 1:11 PM EDT Body Mass Index 36.57 11/02/2023 1:11 PM EDT Plan of Treatment Health Maintenance Due Date Last Done Comments PNEUMOCOCCAL VACCINE (3 - PP SV23 or PCV20) 01/15/2023 01/15/2018, 10/06/2015, 05/01/2012, Additional history exists COLON CANCER SCREENING 07/24/2023 , 05/27/2019 (Completed), 05/27/2019, Additional history exists BMI CHECK/ADVISE 04/10/2024 11/08/2022, 11/2021, 2018, Additional history exists DEPRESSION SCREEN 08/23/2024 08/24/2023, , 08/27/2021 (Completed), Additional history exists FALL RISK ASSESSMENT 08/23/2024 08/24/2023, 03/17/2022, 08/27/2021 Covid-19 Vaccine (2022-2 4 season) 2024 02/24/2021, 06/28/2020, 05/31/2020 INFLUENZA (#1) 2024 01/09/2020, 11/2017, 01/08/2014, Additional history exists CHOLESTEROL SCREENING 11/30/2027 11/29/2022 , 12/28/2021, 07/19/2021, Additional history exists DTAP/TDAP/TD (2 - Td or Tdap) 10/12/2032 10/12/2022 HEPATITIS C SCREENING Completed 05/28/2003 SHINGLES VACCINE Completed 09/14/2022, 11/02/2021 ABDOMINAL AORTIC ANEURYSM (A AA) SCREENING Completed 05/12/2023, 04/21/2003, 04/14/2003 Additional Health Concerns Infection Onset Date Last Indicated COVID-19 09/27/2023 09/28/2023 Care Teams Floral Designer Relationship Specialty Start Date End Date Jonathan Roth MD [address] [place] [address] [phone] PCP - General 01/01/01
--- OUTSIDE RECORDS SUMMARY | 2025-02-26 21:46 | XMS_ITS | Encounter Summary ---
Author Organization [facility] Address [address] [place] [address] Care Team Providers Care Director Records Management Name Role Phone Jonathan Roth MD Primary Care Provider [phone] Encounter Details Date Type Department Care Team Description 08/30/2013 Airfield Manager Report Medical Records [address] [place] [address] Abstract, Provider Social History Tobacco Use Types [...] documented as of this encounter Care Teams Director Records Management Relationship Specialty Start Date End Date Jonathan Roth MD [address] [place] [address] PCP - General 01/01/01 documented as of this encounter
--- OUTSIDE RECORDS SUMMARY | 2025-02-26 21:46 | XMS_ITS | Encounter Summary ---
Author Organization [facility] Address [address] [place] [address] Care Team Providers Care Service And Repair Supervisor Name Role Phone Jonathan Roth MD Primary Care Provider Encounter Details Date Type Department Care Team Description 03/29/2022 [employer] Product Leadership Report Medical Records [address] [place] [address] Conor Shanks MD Social History Tobacco Use Types Packs/Day [...] documented as of this encounter Care Teams Service And Repair Supervisor Relationship Specialty Start Date End Date Jonathan Roth MD [address] [place] [address] PCP - General 01/01/01 documented as of this encounter
--- OUTSIDE RECORDS SUMMARY | 2025-02-26 21:46 | XMS_ITS | Encounter Summary ---
Author Organization [facility] Address [address] [place] [address] Care Team Providers Care Senior Advisor Name Role Phone Jonathan Roth MD Primary Care Provider [phone] Encounter Details Date Type Department Care Team Description 04/08/2013 Hospital Medical Records [address] [place] [address] Kal Mccray MD Social History Tobacco Use Types Packs/Day [...] as of this encounter Care Teams Senior Advisor Relationship Specialty Start Date End Date Jonathan Roth MD [address] [place] [address] PCP - General 01/01/01 documented as of this encounter
--- OUTSIDE RECORDS SUMMARY | 2025-02-26 21:46 | XMS_ITS | Encounter Summary ---
Author Organization [facility] Address [address] [place] [address] Care Team Providers Care Custody Officer Name Role Phone Jonathan Roth MD Primary Care Provider [phone] Encounter Details Date Type Department Care Team Description 12/29/2009 Release of Information Medical Records [address] [place] [address] Abstract, Provider Social History Tobacco Use Types [...] documented as of this encounter Care Teams Custody Officer Relationship Specialty Start Date End Date Jonathan Roth MD [address] [place] [address] PCP - General 01/01/01 documented as of this encounter
--- OUTSIDE RECORDS SUMMARY | 2025-02-26 21:46 | XMS_ITS | Encounter Summary ---
Author Organization [facility] Address [address] [place] [address] Care Team Providers Care Property And Casualty Insurance Agent Name Role Phone Jonathan Roth MD Primary Care Provider [phone] Encounter Details Date Type Department Care Team Description 06/18/2020 Pt. Non Urgent Medic al Question Adult Medicine [address] [address] Leeann Mckeon PA Social History Tobacco Use Types Packs/Day Years [...] encounter Miscellaneous Notes * Telephone Encounter - Valentine Yousif - 06/18/2020 10:35 AM ESTFrom: David Ritchie To: Leeann Ortega PA-C Sent: 06/18/2020 10:34 AM EST Subject: Colonoscopy Leeann I appreciate the follow up. Just to let you know that has been scheduled for July. They said they will be sending me a package on what I need to do before my surgery. documented in this encounter Plan of Treatment Not on file documented as of this encounter Visit Diagnoses Not on filedocumented in this encounter Additional Health Concerns Infection Onset Date Last Indicated Resolved Time COVID-19 09/27/2023 09/28/2023 documented as of this encounter Care Teams Property And Casualty Insurance Agent Relationship Specialty Start Date End Date Jonathan Roth MD [address] [place] [address] PCP - General 01/01/01 documented as of this encounter
--- OUTSIDE RECORDS SUMMARY | 2025-02-26 21:46 | XMS_ITS | Encounter Summary ---
Author Organization [facility] Address [address] [place] [address] Care Team Providers Care Rehab Assistant Name Role Phone Jonathan Roth MD Primary Care Provider [phone] Encounter Details Date Type Department Care Team Description 07/01/2019 Orders Only Adult Medicine [address] [id number] Jonathan Roth MD [address] [place] [address] Social History Tobacco Use Types Packs/Day Years [...] documented as of this encounter Care Teams Rehab Assistant Relationship Specialty Start Date End Date Jonathan Roth MD [address] [place] [address] PCP - General 01/01/01 documented as of this encounter
--- OUTSIDE RECORDS SUMMARY | 2025-02-26 21:46 | XMS_ITS | Encounter Summary ---
Author Organization [facility] Address [address] [address] Care Team Providers Care Brass Roller Name Role Phone Jonathan Roth MD Primary Care Provider [phone] Encounter Details Date Type Department Care Team Description 05/28/2013 Agricultural Engineering Technologist Report Medical Records [address] [place] [address] Abstract, Provider Social History Tobacco Use Types [...] documented as of this encounter Care Teams Brass Roller Relationship Specialty Start Date End Date Jonathan Roth MD [address] [place] [address] PCP - General 01/01/01 documented as of this encounter
--- OUTSIDE RECORDS SUMMARY | 2025-02-26 21:46 | XMS_ITS | Encounter Summary ---
Author Organization [facility] Address [address] [place] [address] Care Team Providers Care Rig Builder Name Role Phone Jonathan Roth MD Primary Care Provider [phone] Encounter Details Date Type Department Care Team Description 01/07/2013 Accounting Technician Report Medical Records [address] [place] [address] Abstract, Provider Social History Tobacco Use Types [...] documented as of this encounter Care Teams Rig Builder Relationship Specialty Start Date End Date Jonathan Roth MD [address] [place] [address] PCP - General 01/01/01 documented as of this encounter
--- OUTSIDE RECORDS SUMMARY | 2025-02-26 21:46 | XMS_ITS | Encounter Summary ---
Author Organization [facility] Address [address] [place] [address] Care Team Providers Care Infrastructure Security Architect Name Role Phone Jonathan Roth MD Primary Care Provider [phone] Reason for Visit * Reason Onset Date Comments Leukopenia 06/05/2014 Encounter Details Date Type Department Care Team Description 06/05/2014 Telephone Adult [address] [phone] Jonathan Roth MD [address] [place] [address] Leukopenia Social History Tobacco Use Types Packs/Day Years [...] Miscellaneous Notes * Telephone Encounter - Lisa White R.N. - 06/05/2014 1:59 PM EST call placed to patient Patient called. Left message on answering machine to call back Adult [facility] at [phone] * Telephone Encounter - Shruthi Woods - 06/05/2014 10:59 AM EST Symptoms patient is presenting: the pt has heard from the [facility] regarding his wbc count, they have changed his medication to neutogen once a week How long has patient had these symptoms?: PCP: Jonathan Roth Payor: MARIA A / Plan: PPO $25 [place] [id number] / Product Type: PPO [id number] documented in this encounter Plan of Treatment Not on file documented as of this encounter Visit Diagnoses Not on filedocumented in this encounter Additional Health Concerns Infection Onset Date Last Indicated Resolved Time COVID-19 09/27/2023 09/28/2023 documented as of this encounter Care Teams Infrastructure Security Architect Relationship Specialty Start Date End Date Jonathan Roth MD [address] [place] [address] PCP - General 01/01/01 documented as of this encounter
--- OUTSIDE RECORDS SUMMARY | 2025-02-26 21:46 | XMS_ITS | Encounter Summary ---
Author Organization [facility] Address [address] [place] [address] Care Team Providers Care Extension Service Specialist In Charge Name Role Phone Jonathan Roth MD Primary Care Provider [phone] Reason for Visit * Reason Onset Date Comments APPOINTMENT 07/13/2021 Encounter Details Date Type Department Care Team Description 07/13/2021 Telephone Pulmonology - [address] [place] [address] Jonathan Roth MD [address] [place] [phone] APPOINTMENT Social History Tobacco Use Types Packs/Day [...] suspected to have Coronavirus/COVID-19? No / Unsure 07/16/2021 3:46 PM EDT documented as of this encounter Miscellaneous Notes * Telephone Encounter - Krystal Mercado - 07/13/2021 9:17 AM EDT Left a message for patient to call to scheduled a PFT ordered for him by Dr. Roth documented in this encounter Plan of Treatment Not on file documented as of this encounter Visit Diagnoses Not on filedocumented in this encounter Additional Health Concerns Infection Onset Date Last Indicated Resolved Time COVID-19 09/27/2023 09/28/2023 documented as of this encounter Care Teams Extension Service Specialist In Charge Relationship Specialty Start Date End Date Jonathan Roth MD [address] [place], [place] [phone] PCP - General 01/01/01 documented as of this encounter
--- OUTSIDE RECORDS SUMMARY | 2025-02-26 21:46 | XMS_ITS | Encounter Summary ---
Author Organization [facility] Address [address] [place] [address] Care Team Providers Care Lining Folder Name Role Phone Jonathan Roth MD Primary Care Provider [phone] Encounter Details Date Type Department Care Team Description 08/18/2021 Refill Gastroenterology - [address] [place] [phone] Latonia Partida PA-C Social History Tobacco Use Types Packs/Day Years [...] encounter Miscellaneous Notes * Telephone Encounter - Gladis House M.A. - 08/18/2021 1:54 PM EDT Last office visit 09/09/19 Next office visit 08/27/21 Lab Results Component Value Date CHOL 88 07/19/2021 LDL 30 07/19/2021 HDL 42 07/19/2021 TRIG 82 07/19/2021 SGOT 23 07/19/2021 SGPT 29 07/19/2021 documented in this encounter Plan of Treatment Not on file documented as of this encounter Visit Diagnoses Not on filedocumented in this encounter Additional Health Concerns Infection Onset Date Last Indicated Resolved Time COVID-19 09/27/2023 09/28/2023 documented as of this encounter Care Teams Lining Folder Relationship Specialty Start Date End Date Jonatahn Roth MD [address] [place] [id number] PCP - General 01/01/01 documented as of this encounter
--- OUTSIDE RECORDS SUMMARY | 2025-02-26 21:46 | XMS_ITS | Encounter Summary ---
Author Organization [facility] Address [address] [place] [id number] Care Team Providers Care Trial Consultant Name Role Phone Jonathan Roth MD Primary Care Provider [phone] Encounter Details Date Type Department Care Team Description 02/09/2011 Hospital Medical Records [address] [place] [address] Rober Cole MD Social History Tobacco Use Types Packs/Day [...] documented as of this encounter Care Teams Trial Consultant Relationship Specialty Start Date End Date Jonathan Roth MD [address] [place] [phone] PCP - General 01/01/01 documented as of this encounter
--- OUTSIDE RECORDS SUMMARY | 2025-02-26 21:46 | XMS_ITS | Encounter Summary ---
Author Organization [facility] Address [address] [place] [id number] Care Team Providers Care Assembler Dc Field Yoke Name Role Phone Jonathan Roth MD Primary Care Provider [phone] Encounter Details Date Type Department Care Team Description 07/05/2013 Hospital Medical Records [address] [place] [address] Abstract, Provider Social History Tobacco Use Types [...] documented as of this encounter Care Teams Assembler Dc Field Yoke Relationship Specialty Start Date End Date Jonathan Roth MD [address] [place] [phone] PCP - General 01/01/01 documented as of this encounter
--- OUTSIDE RECORDS SUMMARY | 2025-02-26 21:46 | XMS_ITS | Encounter Summary ---
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
--- OUTSIDE RECORDS SUMMARY | 2025-02-26 21:46 | XMS_ITS | Clinical Summary ---
Author Organization [facility] Address [address] [place] [address] Phone Care Team Providers Care Jailer/Training Officer Name Role Phone Jonathan Roth MD Primary Care Provider [phone] Allergies Active Allergy Reactions Criticality Noted Date Comments Mold Other 01/11/2012 Medications aspirin 81 mg EC tablet Take 1 tablet (81 mg total) by mouth 1 (one) time each day. Active pantoprazole (PROTONIX) 40 mg EC tablet Take 1 tablet (40 mg total) by mouth 1 (one) time each day before breakfast. Active folic acid (FOLVITE) 1 mg tablet Take 1 Tab by mouth daily. 06/29/19 14 Active metoprolol succinate (TOPROL-XL) 100 mg 24 hr tablet Take 1 Tablet by mouth daily. 06/15/19 24 Active montelukast (SINGULAIR) 10 mg tablet Take 10 mg by mouth at bedtime. Active folic acid/multivit-m in/lutein (CENTRUM SILVER ORAL) Multiple Vitamins-Min erals (CENTRUM SILVER ADULT 50+) Tab Take 1 tablet by mouth daily. Active prednisoLONE 5 mg (21 tabs) tablets,dose pack Take 1 Tab by mouth daily. Active Lactobacillus acidophilus (PROBIOTIC ORAL) Take by mouth. Active sildenafiL (VIAGRA) 50 mg tablet Take 5 mg by mouth 1 (one) time each day. Active sulfamethoxazol e-trimethoprim (BACTRIM,SEPTRA ) 400-80 mg per tablet Take 1 tablet.old by mouth every 72 hours. Monday & Monday & Monday Active tacrolimus (PROGRAF) 1 mg capsule Take 1 Capsule by mouth 2 times daily. 02/17/20 18 Active cloNIDine (BJARVJKE-AIF-7 ) 0.1 mg/24 hrIndications:C hronic kidney disease, stage 4 (severe) (CMS/HCC V24, CMS/HCC V28),Hypertensi ve chronic kidney disease with stage 1 through stage 4 chronic kidney disease, or unspecified chronic kidney disease APPLY 1 PATCH ONCE A WEEK 13 patch 3 05/08/19 25 Active bumetanide (BUMEX) 1 mg tablet Take 1 tablet (1 mg total) by mouth every other day. 45 each 3 06/19/19 25 026 Active apixaban (Eliquis) 5 mg tablet Take 1 tablet (5 mg total) by mouth 2 (two) times a day. 180 tablet 1 10/25/19 25 Active ezetimibe (ZETIA) 10 mg tablet TAKE 1 TABLET BY MOUTH EVERY DAY 90 tablet 1 01/17/20 25 Active amLODIPine (NORVASC) 10 mg tabletIndicatio ns:Chronic kidney disease, stage 4 (severe) (CMS/HCC V24, CMS/HCC V28),Hypertensi ve chronic kidney disease with stage 1 through stage 4 chronic kidney disease, or unspecified chronic kidney disease Take 1 tablet (10 mg total) by mouth 1 (one) time each day. 90 tablet 01/21/20 25 Active calcitrioL (ROCALTROL) 0.25 mcg capsule Take 1 capsule (0.25 mcg total) by mouth every other day. 45 capsule 1 02/05/20 25 Active magnesium oxide (MAG-OX) 400 mg (241.3 elemental magnesium) tablet TAKE 1 TABLET BY MOUTH EVERY DAY 02/03 90 tablet 1 02/18/20 25 Active calcitrioL (ROCALTROL) 0.25 mcg capsule TAKE 1 CAPSULE BY MOUTH EVERY OTHER DAY 45 capsule 1 07/30/19 25 025 Discontinued(Re order) magnesium oxide (MAG-OX) 400 mg (241.3 elemental magnesium) tablet TAKE 1 TABLET BY MOUTH EVERY DAY 02/03 30 tablet 5 08/15/19 25 025 Discontinued Prolia 60 mg/mL syringe syringe Inject 1 mL (60 mg total) under the skin every 6 (six) months. 01/11/20 25 025 Discontinued Active Problems Problem Noted Date Diagnosed Date Other osteoporosis without current pathological fracture 01/24/2025 Lung transplant recipient ([facility] [place] [place] V24, [facility] [place] [place] V28) 12/12/2024 Assessment & Plan (12/12/2024 8:02 PM EDT): CKD (chronic kidney disease) stage 5, GFR less than 15 ml/min ([facility] [place] [place] V24, [facility] [place] [place] V28) 11/12/2024 Assessment & Plan (12/12/2024 8:02 PM EDT): HTN (hypertension) 05/21/2024 Assessment & Plan (12/12/2024 8:02 PM EDT): 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 Angiodysplasia of cecum 02/02/2012 Pulmonary hypertension ([facility] [place] [place] V24, [facility] [place] [place] V28 ) 05/31/2010 Secondary polycythemia 02/12/2010 Allergic rhinitis 02/18/2005 Obesity 02/18/2005 Sarcoidosis 02/18/2005 Resolved Problems Problem Noted Date Diagnosed Date Resolved Date CKD (chronic kidney disease) stage 3, GFR 30-59 ml/min ([facility] [place] [place] V24, [facility] [place] [place] V28) 11/12/2024 11/12/2024 CKD (chronic kidney disease) stage 4, GFR 15-29 ml/min ([facility] [place] [place] V24, [facility] [place] [place] V28) 05/28/2020 11/12/2024 CKD (chronic kidney disease) stage 3, GFR 30-59 ml/min ([facility] [place] [place] V24, [facility] V28) 03/07/2018 04/30/2024 Encounters Date Type Department Care Team Description 02/25/2025 2:00 PM EST [facility] [place] [address] Rhett Vila MD CKD (chronic kidney disease) stage 5, GFR less than 15 ml/min ([facility] [place] [place] V24, [facility] V28) (Primary Dx); Primary hypertension; Pulmonary hypertension ([facility] V24, [facility] V28); Heart transplant recipient ([facility] [place] [place] V24, [facility] [place] [place] V28); Lung transplant recipient ([facility] [place] [place] V24, [facility] [place] [place] V28) 02/11/2025 10:10 AM EST Lab Draw Station - [facility] [address] [place] [id number] Transplanted, lung ([facility] [place] [place] V24, [facility] [place] [place] V28) 02/07/2025 Results Follow-Up Vascular Surgery - [place] [address] [place] [phone] Marni Roth PA 02/06/2025 7:00 AM EDT Ancillary Procedure [facility] - [facility] [address] [facility] [address] [place] [phone] PAD (peripheral artery disease) ([facility] [place] [place] V24); Leg swelling; Post-thrombotic syndrome 01/24/2025 2:00 PM EDT Office Visit Endocrinology - [address] [phone] Petey Davalos MD Other osteoporosis with current pathological fracture with routine healing, subsequent encounter (Primary Dx) 01/20/2025 Telephone Endocrinology - [address] [phone] Daja Starkey MD 01/08/2025 1:30 PM EDT - 01/08/2025 11:59 PM EDT Hospital Encounter Radiology [address] [phone] Vertigo Discharge Disposition: Home or Self Care 12/17/2024 2:45 PM EDT Office Visit Nephrology - [address] [phone] Rhett Vila MD CKD (chronic kidney disease) stage 5, GFR less than 15 ml/min ([facility] V24, [facility]/HCC V28) (Primary Dx); Primary hypertension; Heart transplant recipient ([facility]/HCC V24, [facility] V28); Lung transplant recipient ([facility] V24, [facility] V28) 12/12/2024 3:23 PM EDT - 12/12/2024 11:59 PM EDT Hospital Encounter [address] [phone] Neck pain; Pain of right upper extremity Discharge Disposition: Home or Self Care 12/12/2024 2:30 PM EDT Office Visit Adult Medicine [address] [phone] Jonathan Roth MD Encounter for subsequent annual wellness visit (AWV) in Medicare patient (Primary Dx); Vertigo; Neck pain; Pain of right upper extremity; Lightheadedness; Heart transplant recipient ([facility] V24, [facility] V28); CKD (chronic kidney disease) stage 5, GFR less than 15 ml/min ([facility]/HCC V24, CMS/HCC V28); Primary hypertension; Lung transplant recipient ([facility]/HCC V24, CMS/HCC V28); 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 ([facility] V24, [facility] V28) from Last 3 Months Immunizations Immunization Administration Dates Next Due Hep A, Unspecified 01/01/2013, 3,07/03/2012,05/01 Hepatitis B (Doasdki-L-Uyyjd , Recombivax HB-Adult) 19yo and older 02/16/2022,11/10/2021,02/10/2011,01/12,12/29/2010 Influenza trivalent, 0.5mL ( Fluzone High-dose) 65yo and older 01/09/2020 Influenza trivalent, with pr eservative (Fluzone; Afluria) 6mo and older 01/15/2018,01/08/2014,01/24/2011,01/13,01/10/2009,01/17/2008,01/29/2007 Moderna SARS-CoV-2 COVID-19, mRNA, LNP-S, preservative free 02/24/2021 PPD Test 12/21/2010 Pneumococcal conjugate 13 va lent (Prevnar 13, PCV13) 2mo and older 10/06/2015 Pneumococcal polysaccharide 23 valent (Pneumovax 23) 2yo and older 01/15/2018,05/01/2012,04/20/2001 Tdap Tetanus diptheria acell ular pertussis (Boostrix; Adacel) 7yo and older 10/12/2022 Surgical History Surgery Date Site/Laterality Comments CHOLECYSTECTOMY PROCEDURE: HISTORICAL CHOLECYSTECTOMY OTHER SURGICAL HISTORY 02/10/2011 PROCEDURE: [place] ESOPHAGEAL MOTILITY STUDY W/INTERP&RPT; COMMENT: [facility]; manometry and 24 hr imped-pH; no reflux; non-specific motility disorder. COLONOSCOPY 2006 PROCEDURE: HISTORICAL COLONOSCOPY; COMMENT: normal, poor prep in the cecum. COLONOSCOPY 02/02/2012 PROCEDURE: HISTORICAL COLONOSCOPY; COMMENT: 5 mm RC polyp and one 5 mm cecal angiodysplasia. tubular adenoma. OTHER SURGICAL HISTORY 2013 PROCEDURE: [place] HEART-LUNG TRNSPL W/RECIPIENT CARDIECTOMY-PNUMEC; COMMENT: [facility], heart and lung transplant. COLONOSCOPY 05/27/2019 PROCEDURE: HISTORICAL COLONOSCOPY; COMMENT: Negative examination to the mid ascending colon, poor prep. Consider repeat 1-3 years. COLONOSCOPY 07/23/2020 PROCEDURE: HISTORICAL COLONOSCOPY; COMMENT: 7 mm polyp: Tubular adenoma. Medical History Medical History Date Comments Sarcoidosis DX:Sarcoidosis Gilbert syndrome 05/25/2012 DX:Gilbert synd yue Obesity 02/18/2005 DX:Obesity Gastroparesis 07/30/2013 DX:Gastroparesis Allergic rhinitis 02/18/2005 DX:Allergic rh initis Secondary polycythemia 02/12/2010 DX:Second rosalee polycythemia Pulmonary hypertension, secondary 05/31/2010 DX:Pulmonary hypertension, secondary Angiodysplasia of cecum 02/02/2012 DX:Angio dysplasia of cecum Benign neoplasm of colon 02/02/2012 DX:Vincent gn neoplasm of colon; COMMENT: Small tubular adenoma at CN 02/02/2012. Hepatitis B antibody positive 05/25/2012 DX :Hepatitis B antibody positive; COMMENT: E AB positive, Surface AB positive, undetectable blood DNA, normal LFT as of 2012. CHF (congestive heart failur e) ([facility] V24, [facility] V28) 04/25/2013 DX:CHF (congestive heart fa ilure) (HCC) Heart transplant recipient ( [facility] V24, [facility] V28) 01/13/2017 DX:Heart transplant recipien t (HCC); COMMENT: 2013 [facility] History of lung transplant ( [facility] V24, [facility] V28) 01/13/2017 DX:History of lung transplan t (HCC) Obstructive sleep apnea syndrome 01/13/2017 DX:Obstructive sleep apnea syndrome CKD (chronic kidney disease) stage 3, GFR 30-59 ml/min ([facility] V24, [facility] V28) 03/07/2018 DX:CKD (chronic kidney disea se) stage 3, GFR 30-59 ml/min ([facility]) History of colon polyps 02/02/2012 DX:Histo ry of colon polyps; COMMENT: Small tubular adenoma at CN 02/02/2012. Family History Medical History Relation Name Comments Prostate cancer Father Diabetes Mother Hypertension Mother Colon cancer Neg Hx Coronary artery disease Neg Hx no p remature CAD Relation Name Status Comments Father Mother Social History Tobacco Use Types Packs/Day Years Used Date Smoking Tobacco: Former Cigarettes 4 Q uit: 04/10/1988 Smokeless Tobacco: Never Tobacco Cessation:Counseling Given: Not [...] care for your loved ones. For example, early childhood lead teacher or elderly care for an older adult? [...] on file Sexual Orientation Not on file Obstetrics History Last Filed Vital Signs Vital Sign Reading Time Taken Comments Blood Pressure 146/72 02/25/2025 2:00 PM EST Pulse 71 02/25/2025 2:00 PM EST Temperature 36.7 C (98.1 F) 01/24/2025 2:38 PM EDT Respiratory Rate 14 12/12/2024 2:33 PM EDT Oxygen Saturation 98% 12/12/2024 2:33 PM EDT Inhaled Oxygen Concentration - - Weight 112 kg (247 lb 3.2 oz) 02/25/2025 2:00 PM EST Height 170.2 cm (5' 7 ) 01/24/2025 2:38 PM EDT Body Mass Index 38.72 01/24/2025 2:38 PM EDT Plan of Treatment Upcoming Encounters Date Type Department Care Team (Late st Contact Info) Description 03/03/2025 2:00 PM EST Office Visit Vascular Surgery - [place] [address] [facility] [address] [place] [address] Marni Roth PA [address] [facility] [address] [place] [address] 06/17/2025 2:00 PM EDT [facility] [address] [place] [address] Rhett Vila MD [address] [place] [address] 07/25/2025 1:20 PM EDT Office Visit Endocrinology - [place] [address] [place] [address] Petey Davalos MD [address] [place] [address] Health Maintenance Due Date Last Done Comments RSV Immunization Adult Patients (1 - Risk 50-74 years 1-dose series) 01/24/2004 COVID-19 Vaccine ( season) 2024 02/24/2021, 06/28/2020, 05/31/2020 Influenza Vaccine (#1) 2024 , 12/25/2023, 02/01/2023, Additional history exists Falls Risk Assessment 12/12/2025 12/12/2024, 024 Medicare Annual Wellness Visit 12/12/2025 12/12/2024 Social Influencers of Health Screening 12/12/2025 12/12/2024 Hypertension/CHF/CAD Annual BMP Blood Test 02/11/2026 02/11/2025, 12/17/2024, 12/17/2024, Additional history exists Colorectal Cancer Screening: Colonoscopy 07/24/2027 07/23/2020 Cholesterol Screening (Lipid Panel) 07/18/2029 07/18/2024, 09/18/2023, 03/16/2023 DTaP,Tdap,and Td Vaccines (2 - Td or Tdap) 10/12/2032 10/12/2022 Hepatitis A Vaccines Completed 01/01/2013, 12/13/2012, 07/03/2012, Additional history exists Pneumococcal Vaccine: 50+ Years Completed 11/02/2021, 01/15/2018, 10/06/2015, Additional history exists Hepatitis B Vaccines Completed 02/16/2022, 11/10/2021, 02/10/2011, Additional history exists Zoster Vaccines Completed 09/14/2022, 11/02/2021 Abdominal Aortic Aneurysm (AAA) Screen Completed 05/12/2023, 05/12/2023 Hepatitis C Screening Completed 08/19/2024, 013 Depression Screening Completed 12/12/2024, 08/24/19 24 HIB Vaccines Aged Out No longer eligi ble based on patient's age to complete this topic HPV Vaccines Aged Out No longer eligi ble based on patient's age to complete this topic IPV Vaccines Aged Out No longer eligi ble based on patient's age to complete this topic MMR Vaccines Aged Out No longer eligi ble based on patient's age to complete this topic Meningococcal ACWY Vaccine Aged Out N o longer eligible based on patient's age to complete this topic Meningococcal B Vaccine Aged Out No l onger eligible based on patient's age to complete this topic RSV Immunization Patients Under 20 months Aged Out No longer eligible based on patient's age to complete this topic Varicella Vaccines Aged Out No longer eligible based on patient's age to complete this topic Goals Goal Patient Goal Type Associated Problems [...] Pt will demonstrate neg Tiffanie's test bilaterally Procedures Procedure Name Priority Date/Time Associated Diagnosis Comments CBC WITH AUTO DIFFERENTIAL Routine 02/11/2025 10:22 AM EST Transplanted, lung (CMS/HCC V24, CMS/HCC V28) CBC AND DIFFERENTIAL Routine 02/11/2025 10:22 AM EST Transplanted, lung (CMS/HCC V24, CMS/HCC V28) COMPREHENSIVE METABOLIC PANEL Routine 02/11/2025 10:22 AM EST Transplanted, lung (CMS/HCC V24, CMS/HCC V28) VAS US DUPLEX LOWER EXT ARTERIES BILAT WITH BAYLEE Routine 02/06/2025 7:56 AM EDT PAD (peripheral artery disease) (CMS/HCC V24) Leg swelling Post-thrombotic syndrome MR BRAIN WO CONTRAST Routine 01/08/2025 2:23 PM EDT Vertigo CALCIUM Routine 12/17/2024 12:18 PM EDT Chronic kidney disease, stage V (CMS/HCC V24, CMS/HCC V28) Transplanted heart (CMS/HCC V24, CMS/HCC V28) Essential hypertension, malignant PARATHYROID HORMONE INTACT Routine 12/17/2024 12:18 PM EDT Chronic kidney disease, stage V (CMS/HCC V24, CMS/HCC V28) Transplanted heart (CMS/HCC V24, CMS/HCC V28) Essential hypertension, malignant VITAMIN D 25 HYDROXY Routine 12/17/2024 12:18 PM EDT CKD (chronic kidney disease) stage 5, GFR less than 15 ml/min (CMS/HCC V24, CMS/HCC V28) Heart transplant recipient (CMS/HCC V24, CMS/HCC V28) Primary hypertension PHOSPHORUS Routine 12/17/2024 12:18 PM EDT CKD (chronic kidney disease) stage 5, GFR less than 15 ml/min (CMS/HCC V24, CMS/HCC V28) Heart transplant recipient (CMS/HCC V24, CMS/HCC V28) Primary hypertension ELECTROLYTE PANEL Routine 12/17/2024 12: 18 PM EDT CKD (chronic kidney disease) stage 5, GFR less than 15 ml/min (CMS/HCC V24, CMS/HCC V28) Heart transplant recipient (CMS/HCC V24, CMS/HCC V28) Primary hypertension CREATININE, SERUM Routine 12/17/2024 12: 18 PM EDT CKD (chronic kidney disease) stage 5, GFR less than 15 ml/min (CMS/HCC V24, CMS/HCC V28) Heart transplant recipient (CMS/HCC V24, CMS/HCC V28) Primary hypertension BUN Routine 12/17/2024 12:18 PM EDT CKD (chronic kidney disease) stage 5, GFR less than 15 ml/min (CMS/HCC V24, CMS/HCC V28) Heart transplant recipient (CMS/HCC V24, CMS/HCC V28) Primary hypertension CBC WITH AUTO DIFFERENTIAL Routine 12/17/2024 12:17 PM EDT Transplanted, lung (CMS/HCC V24, CMS/HCC V28) COMPREHENSIVE METABOLIC PANEL Routine 12/17/2024 12:17 PM EDT Transplanted, lung (CMS/HCC V24, CMS/HCC V28) CBC AND DIFFERENTIAL Routine 12/17/2024 12:17 PM EDT Transplanted, lung (CMS/HCC V24, CMS/HCC V28) TACROLIMUS LEVEL Routine 12/17/2024 12:1 7 PM EDT Transplanted, lung (CMS/HCC V24, CMS/HCC V28) FARIBA CASILLAS VIRUS PCR QUANTITATIVE Routine 12/17/2024 12:17 PM EDT Transplanted, lung (CMS/HCC V24, CMS/HCC V28) XR CERVICAL SPINE 4-5 VIEWS Routine 12/12/2024 3:39 PM EDT Neck pain Pain of right upper extremity HEPATITIS C ANTIBODY Routine 08/19/2024 11:33 AM EDT History of hepatitis DEPRESSION SCREENING Routine 08/24/2023 FALLS RISK ASSESSMENT Routine 08/24/2023 US ABDOMINAL AORTA REAL TIME SCREEN STUDY AAA Routine 05/12/2023 9:46 AM EST Encounter for screening for cardiovascular disorders LIPID PANEL Routine 03/16/2023 COLONOSCOPY Routine 07/23/2020 from Last 3 Months or Most Recently Relevant to Health Maintenance Results * (ABNORMAL) CBC auto differential (02/11/2025 10:22 AM EST) Only the most recent of2 resultswithin the time period is included. WBC 7.5 4.8 - 10.8 K/mcL LAB HEMETOLOGY METHOD 02/11/2025 1:04 PM [facility] RBC 4.70 4.50 - 5.50 M/mcL LAB HEMETOLOGY METHOD 02/11/2025 1:04 PM [facility] Hemoglobin 10.9(L) 13.5 - 17.5 g/dL LAB HEMETOLOGY METHOD 02/11/2025 1:04 PM [facility] Hematocrit 36.9(L) 42.0 - 54.0 % LAB HEMETOLOGY METHOD 02/11/2025 1:04 PM [facility] MCV 77.8(L) 79.0 - 98.0 FL LAB HEMETOLOGY METHOD 02/11/2025 1:04 PM [facility] MCH 23.0(L) 27.0 - 32.0 pcg LAB HEMETOLOGY METHOD 02/11/2025 1:04 PM [facility] MCHC 29.5(L) 32.0 - 37.0 g/dL LAB HEMETOLOGY METHOD 02/11/2025 1:04 PM [facility] RDW 18.4(H) 11.0 - 15.0 % LAB HEMETOLOGY METHOD 02/11/2025 1:04 PM [facility] Platelets 191 130 - 400 K/mcL LAB HEMETOLOGY METHOD 02/11/2025 1:04 PM [facility] MPV 11.1(H) 7.0 - 11.0 FL LAB HEMETOLOGY METHOD 02/11/2025 1:04 PM [facility] NRBC 0.0 <1.0 % LAB HEMETOLOGY METHOD 02/11/2025 1:04 PM [facility] NRBC Absolute 0.00 <0.10 K/mcL LAB HEMETOLOGY METHOD 02/11/2025 1:04 PM [facility] Neutrophils Relative 66.5 % LAB HEMETOLOGY METHOD 02/11/2025 1:04 PM [facility] Lymphocytes Relative 23.5 % LAB HEMETOLOGY METHOD 02/11/2025 1:04 PM [facility] Monocytes Relative 8.5 % LAB HEMETOLOGY METHOD 02/11/2025 1:04 PM [facility] Eosinophils Relative 0.8 % LAB HEMETOLOGY METHOD 02/11/2025 1:04 PM [facility] Basophils Relative 0.3 % LAB HEMETOLOGY METHOD 02/11/2025 1:04 PM [facility] Immature Granulocytes Relative 0.4 % LAB HEMETOLOGY METHOD 02/11/2025 1:04 PM EST [facility] Neutrophils Absolute 4.99 1.50 - 7.00 K/mcL LAB HEMETOLOGY METHOD 02/11/2025 1:04 PM EST [facility] Lymphocytes Absolute 1.76 1.00 - 5.00 K/mcL LAB HEMETOLOGY METHOD 02/11/2025 1:04 PM [facility] Monocytes Absolute 0.64 0.20 - 1.00 K/mcL LAB HEMETOLOGY METHOD 02/11/2025 1:04 PM [facility] Eosinophils Absolute 0.06 0.00 - 0.50 K/mcL LAB HEMETOLOGY METHOD 02/11/2025 1:04 PM [facility] Basophils Absolute 0.02 0.00 - 0.20 K/mcL LAB HEMETOLOGY METHOD 02/11/2025 1:04 PM [facility] Immature Granulocytes Absolute 0.03 0.00 - 0.03 K/mcL LAB HEMETOLOGY METHOD 02/11/2025 1:04 PM [facility] Blood Venous blood specimen / Unknown Venipuncture / Unknown 02/11/2025 10:22 AM EST 02/11/2025 11:22 AM EST us [place] DO LAB BLOOD ORDERABLES Final Resu lt [facility] [address] [place] [address], * (ABNORMAL) Comprehensive metabolic panel (02/11/2025 10:22 AM EST) Only the most recent of2 resultswithin the time period is included. Sodium 141 133 - 145 mmol/L LAB CHEMISTRY METHOD 02/11/2025 2:24 PM [facility] Potassium 4.4 3.5 - 5.5 mmol/L LAB CHEMISTRY METHOD 02/11/2025 2:24 PM [facility] Chloride 111(H) 96 - 110 mmol/L LAB CHEMISTRY METHOD 02/11/2025 2:24 PM [facility] CO2 26 21 - 32 mmol/L LAB CHEMISTRY METHOD 02/11/2025 2:24 PM [facility] Anion Gap 4 3 - 11 LAB CHEMISTRY METHOD 02/11/2025 2:24 PM [facility] Glucose 83 70 - 100 mg/dL LAB CHEMISTRY METHOD 02/11/2025 2:24 PM [facility] BUN 50(H) 5 - 25 mg/dL LAB CHEMISTRY METHOD 02/11/2025 2:24 PM [facility] Creatinine 4.30(H) 0.70 - 1.30 mg/dL LAB CHEMISTRY METHOD 02/11/2025 2:24 PM [facility] eGFR 14(L) >=60 mL/min/1. 73m2 LAB CHEMISTRY METHOD 02/11/2025 2:24 PM [facility] Comment:Calculation based on the Chronic Kidney Disease Epidemiology Collaboration (CKD-EPI) equation refit without adjustment for race. BUN/Creatinine Ratio 11.6 LAB CHEMISTRY METHOD 02/11/2025 2:24 PM [facility] Calcium 9.1 8.5 - 10.5 mg/dL LAB CHEMISTRY METHOD 02/11/2025 2:24 PM [facility] AST (SGOT) 30 10 - 42 unit/L LAB CHEMISTRY METHOD 02/11/2025 2:24 PM [facility] ALT (SGPT) 54 10 - 60 unit/L LAB CHEMISTRY METHOD 02/11/2025 2:24 PM [facility] Alkaline Phosphatase 46 42 - 121 unit/L LAB CHEMISTRY METHOD 02/11/2025 2:24 PM [facility] Total Protein 6.1 6.0 - 8.0 g/dL LAB CHEMISTRY METHOD 02/11/2025 2:24 PM [facility] Albumin 3.5 3.2 - 5.0 g/dL LAB CHEMISTRY METHOD 02/11/2025 2:24 PM EST [facility] Total Bilirubin 0.4 0.0 - 1.4 mg/dL LAB CHEMISTRY METHOD 02/11/2025 2:24 PM EST [facility] Blood Venous blood specimen / Unknown Venipuncture / Unknown 02/11/2025 10:22 AM EST 02/11/2025 11:23 AM EST us Yee River DO LAB BLOOD ORDERABLES Final Resu lt [facility] ([facility]) [facility] [address] [place] [address], [place] [phone] * Vascular US duplex lower extremity arteries bilateral with BAYLEE (02/06/2025 7:56 AM EDT) Left Dist External Iliac PSV 78 cm/s [facility] Left Prox External Iliac PSV 70 cm/s [facility] Left AT dist sys PSV 35 cm/s [facility] Left AT mid sys PSV 37 cm/s [facility] Left AT prox sys PSV 44 cm/s [facility] Left SMALL BUSINESS REPRESENTATIVE prox sys PSV 52 cm/s [facility] Left mid peroneal sys PSV 26 cm/s CV [facility] LAB Left popliteal dist sys PSV 99 cm/s [facility] LAB Left popliteal prox sys PSV 52 cm/s [facility] Left PT dist sys PSV 34 cm/s [facility] Left PT mid sys PSV 32 cm/s [facility] Left PT prox sys PSV 29 cm/s [facility] Left super femoral dist sys PSV 96 cm/s [facility] Left super femoral mid sys PSV 140 cm/s [facility] Left super femoral prox sys PSV 116 cm/s [facility] Right Dist External Iliac PSV 98 cm/s [facility] LAB Right Prox External Iliac PSV 137 cm/s [facility] Right AT dist sys PSV 73 cm/s CV [facility] LAB Right AT mid sys PSV 68 cm/s [facility] LAB Right AT prox sys PSV 139 cm/s CV [facility] LAB Right SMALL BUSINESS REPRESENTATIVE prox sys PSV 69 cm/s CV [facility] LAB Right mid peroneal sys PSV 58 cm/s CV [facility] LAB Right popliteal dist sys PSV 88 cm/s CV [facility] LAB Right popliteal prox sys PSV 86 cm/s [facility] Right PT dist sys PSV 84 cm/s [facility] Right PT mid sys PSV 90 cm/s [facility] Right PT prox sys PSV 74 cm/s [facility] Right super femoral dist sys PSV 120 cm/s CV [facility] LAB Right super femoral mid sys PSV 164 cm/s [facility] Right super femoral prox sys PSV 81 cm/s [facility] Right arm BP 148 mmHg [facility] Left arm BP 143 mmHg [facility] Right posterior tibial 168 mmHg [facility] Right Dorsalis Pedis 169 mmHg [facility] Right BAYLEE 1.14 [facility] Left posterior tibial 133 mmHg [facility] Left Dorsalis Pedis 142 mmHg [facility] V[facility] Left BAYLEE 0.96 [facility] Right profunda sys PSV 91 cm/s [facility] V[facility] LAB Left profunda sys PSV 66 cm/s [facility] LAB Anatomical Region Laterality Modality Vascular, Abdomen Ultrasound Narrative 02/06/2025 5:11 PM EDT Right: The BAYLEE is 4.14 which is normal. Normal pulse volume waveform at the right ankle. Normal amplitude PPG waveform in the digit. There is mild atherosclerotic palque in the right lower extremity arteries. There is probably moderate stenosis (30 to 49%) of the mid SFA (increased Doppler velocity noted but Doppler waveforms are triphasic distally) 3-vessel runoff is noted in the right calf. Left: The BAYLEE is 0.96 indicating borderline PAD. Normal pulse volume waveform at the left ankle. Normal amplitude PPG waveform in the digit. There is mild atherosclerotic palque in the left lower extremity arteries. There is no significant stenosis. 3-vessel runoff is noted in the left calf. Right BAYLEE Right CR=514/76 Left BAYLEE Left BP= 143/71 Right Lower Arterial Duplex The distal external iliac artery has triphasic flow. The common femoral artery has triphasic flow. The profunda femoris artery has biphasic flow. The superficial femoral artery has triphasic flow. The popliteal artery has triphasic flow. The anterior tibial artery has triphasic flow. The posterior tibial artery has triphasic flow. The mid peroneal artery has triphasic flow. Left Lower Arterial Duplex The distal external iliac artery has biphasic flow. The common femoral artery has biphasic flow. The profunda femoris artery has biphasic flow. The proximal superficial femoral artery has triphasic flow. The mid superficial femoral artery has biphasic flow. The distal superficial femoral artery has biphasic flow. The popliteal artery has biphasic flow. The anterior tibial artery has biphasic flow. The posterior tibial artery has biphasic flow. The mid peroneal artery has monophasic flow. [employer] Inspector Details A singh scale, color and doppler analysis ultrasound was performed. During the study longitudinal views were obtained. Pulsed wave doppler was performed. us Marni TOBAR CV VASCULAR PROCEDURES Final Result * MR Brain wo Contrast (01/08/2025 2:23 PM EDT) Anatomical Region Laterality Modality Head and Neck Magnetic Resonan ce 01/08/2025 2:29 PM EDT Impressions 01/08/2025 2:39 PM EDT Impression: 1. No acute intracranial process. 2. Moderate white matter hyperintensities within the supraventricular and periventricular region consistent with microvascular ischemic changes. -------- FINAL REPORT -------- Dictated By: Tawnya Soares Dictated Date: 01/08/2025 14:29 ET Assigned Physician: Tawnya Soares Reviewed and Electronically Signed By: Tawnya Soares Signed Date: 01/08/2025 14:39 ET Workstation ID: [id number] Transcribed By: Self Edit Transcribed Date: 01/08/2025 14:29 ET Narrative 01/08/2025 2:39 PM EDT MRI BRAIN WITHOUT CONTRAST Clinical Statement: vertigo new onset Comparison: None Technique: Multiplanar, multisequence MR images of the brain were obtained without contrast. Findings: There is no evidence of diffusion restriction. Moderate white matter hyperintensities within the supraventricular and periventricular region consistent with microvascular ischemic changes. Intracranial flow voids are within normal limits. The ventricular system is mildly prominent commensurate with the degree of volume loss. The basilar cisterns are within normal limits the craniocervical junction is grossly within normal limits. The orbits and globes are within normal limits. Minimal mucosal thickening within the paranasal sinuses. Procedure Note Tawnya Soares MD - 01/08/2025 MRI BRAIN WITHOUT CONTRAST Clinical Statement: vertigo new onset Comparison: None Technique: Multiplanar, multisequence MR images of the brain wereobtained without contrast. Findings: There is no evidence of diffusion restriction. Moderate whitematter hyperintensities within the supraventricular and periventricularregion consistent with microvascular ischemic changes. Intracranial flowvoids are within normal limits. The ventricular system is mildlyprominent commensurate with the degree of volume loss. The basilarcisterns are within normal limits the craniocervical junction is grosslywithin normal limits. The orbits and globes are within normal limits.Minimal mucosal thickening within the paranasal sinuses. IMPRESSION: Impression: 1. No acute intracranial process. 2. Moderate white matter hyperintensities within the supraventricular andperiventricular region consistent with microvascular ischemic changes. -------- FINAL REPORT -------- Dictated By: Tawnya Soares Dictated Date: 01/08/2025 14:29 ET Assigned Physician: Tawnya Soares Reviewed and Electronically Signed By: Tawnya Soares Signed Date: 01/08/2025 14:39 ET Workstation ID: [id number] Transcribed By: Self Edit Transcribed Date: 01/08/2025 14:29 ET Jonathan Roth MD [facility] MRI PROCEDURES Final Result * (ABNORMAL) Creatinine (12/17/2024 12:18 PM EDT) Creatinine 4.18(H) 0.70 - 1.30 mg/dL LAB CHEMISTRY METHOD 12/17/2024 2:02 PM EDT [facility] eGFR 15(L) >=60 mL/min/1. 73m2 LAB CHEMISTRY METHOD 12/17/2024 2:02 PM EDT [facility] Comment:Calculation based on the Chronic Kidney Disease Epidemiology Collaboration (CKD-EPI) equation refit without adjustment for race. Blood Venous blood specimen / Unknown Venipuncture / Unknown 12/17/2024 12:18 PM EDT 12/17/2024 12:44 PM EDT us Rhett Vila MD LAB BLOOD ORDERABLES Final Resu lt Performing Organization Address [facility]/ZIP Co de Phone Number [facility] [address] [place] [address], [place] [phone] * Vitamin D 25 hydroxy (12/17/2024 12:18 PM EDT) Vit D, 25-Hydroxy 55.6 30.0 - 80.0 ng/mL LAB CHEMISTRY METHOD 12/17/2024 3:06 PM EDT [facility] Blood Venous blood specimen / Unknown Venipuncture / Unknown 12/17/2024 12:18 PM EDT 12/17/2024 12:44 PM EDT us Rhett Vila MD LAB BLOOD ORDERABLES Final Resu lt Performing Organization Address [facility] de Phone Number [facility] [address] [place] [address], [place] [phone] * (ABNORMAL) BUN (12/17/2024 12:18 PM EDT) BUN 56(H) 5 - 25 mg/dL LAB CHEMISTRY METHOD 12/17/2024 2:01 PM EDT [facility] Blood Venous blood specimen / Unknown Venipuncture / Unknown 12/17/2024 12:18 PM EDT 12/17/2024 12:44 PM EDT us Rhett Vila MD LAB BLOOD ORDERABLES Final Resu lt Performing Organization Address City/[facility]/ZIP Co de Phone Number [facility] [address] [place] [address], [place] [phone] * Phosphorus (12/17/2024 12:18 PM EDT) Phosphorus 3.4 2.5 - 4.5 mg/dL LAB CHEMISTRY METHOD 12/17/2024 2:01 PM EDT [facility] Blood Venous blood specimen / Unknown Venipuncture / Unknown 12/17/2024 12:18 PM EDT 12/17/2024 12:44 PM EDT us Rhett Vila MD LAB BLOOD ORDERABLES Final Resu lt [facility] [address] [place] [address], [place] [phone] * (ABNORMAL) Parathyroid hormone intact (12/17/2024 12:18 PM EDT) PTH 305.2(H) 18.5 - 88.0 pcg/mL LAB CHEMISTRY METHOD 12/17/2024 3:36 PM EDT [facility] Blood Venous blood specimen / Unknown Venipuncture / Unknown 12/17/2024 12:18 PM EDT 12/17/2024 12:44 PM EDT us Rhett Vila MD LAB BLOOD ORDERABLES Final Resu lt [facility] [address] [place] [address], [place] [phone] * Calcium (12/17/2024 12:18 PM EDT) Calcium 9.0 8.5 - 10.5 mg/dL LAB CHEMISTRY METHOD 12/17/2024 2:01 PM EDT [facility] Blood Venous blood specimen / Unknown Venipuncture / Unknown 12/17/2024 12:18 PM EDT 12/17/2024 12:44 PM EDT us Rhett Vila MD LAB BLOOD ORDERABLES Final Resu lt Performing Organization Address [facility] Co de Phone Number [facility] [address] [place] [address], [place] [phone] * (ABNORMAL) Electrolyte panel (12/17/2024 12:18 PM EDT) Sodium 141 133 - 145 mmol/L LAB CHEMISTRY METHOD 12/17/2024 2:28 PM EDT [facility] Potassium 5.0 3.5 - 5.5 mmol/L LAB CHEMISTRY METHOD 12/17/2024 2:28 PM EDT [facility] Chloride 112(H) 96 - 110 mmol/L LAB CHEMISTRY METHOD 12/17/2024 2:28 PM EDT [facility] CO2 22 21 - 32 mmol/L LAB CHEMISTRY METHOD 12/17/2024 2:28 PM EDT [facility] Anion Gap 7 3 - 11 LAB CHEMISTRY METHOD 12/17/2024 2:28 PM EDT [facility] Blood Venous blood specimen / Unknown Venipuncture / Unknown 12/17/2024 12:18 PM EDT 12/17/2024 12:44 PM EDT us Rhett Vila MD LAB BLOOD ORDERABLES Final Resu lt Performing Organization Address [facility]/ZIP Co de Phone Number [facility] [address] [place] [address], [place] [phone] * Tacrolimus level (12/17/2024 12:17 PM EDT) Tacrolimus Level 6.7 5.0 - 20.0 ng/mL 12/20/2024 1:11 PM EDT [facility] Comment: Additional Information: Toxic Level > 26 ng/mL Organ Post Transp. (months) Trough Level (ng/mL) Kidney Up to 3 7.0 - 20.0 >3 5.0 - 15.0 Heart Up to 3 10.0 - 20.0 >3 5.0 - 15.0 Liver Up to 12 5.0 - 20.0 Tacrolimus determined by a LC-MS/MS procedure. If applicable, any drug confirmation testing reported here was developed and the performance characteristics determined by [facility]. This confirmation testing has not been cleared or approved by the FDA. The laboratory is regulated under CLIA as qualified to perform high-complexity testing. This test is used for patient testing purposes. It should not be regarded as investigational or for research. Test performed at [facility], [address] , [place] [address] Ronna Rascon MD, PhD - [employer] Rep[employer]r Blood Venous blood specimen / Unknown Venipuncture / Unknown 12/17/2024 12:17 PM EDT 12/17/2024 12:45 PM EDT Yee River DO LAB BLOOD ORDERABLES Final Resu lt [facility] [address] [place] [address] * Fariba Casillas virus molecular study quantitative (12/17/2024 12:17 PM EDT) [facility] Fariba-Casillas Virus DNA, Qualitative Not detected Not detected 12/20/2024 1:05 PM EDT [facility] Fariba-Casillas Virus DNA, Quantitative <50 <50 IU/mL 12/20/2024 1:[address] [facility] Log Fariba-Casillas Virus DNA <1.70 <1.70 Log (10) IU/mL 12/20/2024 1:[address] [facility] Comment: This test uses real-time polymerase chain reaction (PCR) from [employer] to amplify and detect regions of the Fariba Casillas Virus genome extracted from plasma or CSF specimens. Real-time detection and quantification are used to determine the viral concentration. The analytical measurement range is 50 to 200 million IU/mL (1.7 to 8.3 log(10) IU/mL). The qualitative limit of detection is 20 IU/mL (1.3 log(10) IU/mL). Specimens reported as DETECTED but <50 IU/mL, contain detectable levels of EB Virus DNA, but the viral load is below the limit of quantification. A Not Detected result does not rule out infection. Test performed at [facility], [address] , [place] [address] Ronna Rascon MD, PhD - [employer] Machinery Repairer Blood Venous blood specimen / Unknown Venipuncture / Unknown 12/17/2024 12:17 PM EDT 12/17/2024 12:45 PM EDT us Yee River DO LAB MICROBIOLOGY - [facility] SOL GUERIN Final Result [facility] [address] [place] [address] * XR Cervical Spine 4-5 Views (12/12/2024 3:39 PM EDT) Anatomical Region Laterality Modality Spine, C-spine Radiographic Sonam ging 12/13/2024 8:09 AM EDT Impressions 12/13/2024 8:13 AM EDT Moderate degenerative changes. Loss of the normal cervical lordosis which can be positional or secondary to muscle spasm. POS - [id number] -------- FINAL REPORT -------- Dictated By: Jeanette Denise Dictated Date: 12/13/2024 08:09 ET Assigned Physician: Jeanette Denise Reviewed and Electronically Signed By: Jeanette Denise Signed Date: 12/13/2024 08:13 ET Workstation ID: [id number] Transcribed By: Self Edit Transcribed Date: 12/13/2024 08:09 ET Narrative 12/13/2024 8:13 AM EDT EXAM: Cervical spine x-ray HISTORY: Neck and right arm pain. Possible radiculopathy. No recent trauma. COMPARISON: None FINDINGS: 4 views performed. Cervical spine is visualized through T1 on the lateral projection. No compression deformities. Straightening of the normal cervical lordosis. Moderate disc space narrowing at C4-5 and C6-7 with anterior endplate spurring. Mild disc space narrowing at C3-4. Multilevel uncovertebral spurring and facet arthropathy. On the right, neural foraminal encroachment at C3-4 through C6-7. On the left, neural foraminal encroachment at C3-4, C4-5, and C6-7. Atlantoaxial distance is within normal limits. No abnormal thickening of the prevertebral soft tissues. Procedure Note Jeanette Denise MD - 12/13/2024 EXAM: Cervical spine x-ray HISTORY: Neck and right arm pain. Possible radiculopathy. No recenttrauma. COMPARISON: None FINDINGS: 4 views performed. Cervical spine is visualized through T1 on the lateral projection. Nocompression deformities. Straightening of the normal cervical lordosis. Moderate disc space narrowing at C4-5 and C6-7 with anterior endplatespurring. Mild disc space narrowing at C3-4. Multilevel uncovertebralspurring and facet arthropathy. On the right, neural foraminal encroachment at C3-4 through C6-7. On theleft, neural foraminal encroachment at C3-4, C4-5, and C6-7. Atlantoaxial distance is within normal limits. No abnormal thickening ofthe prevertebral soft tissues. IMPRESSION: Moderate degenerative changes. Loss of the normal cervical lordosis whichcan be positional or secondary to muscle spasm. POS - [id number] -------- FINAL REPORT -------- Dictated By: Jeanette Denise Dictated Date: 12/13/2024 08:09 ET Assigned Physician: Jeanette Denise Reviewed and Electronically Signed By: Jeanette Denise Signed Date: 12/13/2024 08:13 ET Workstation ID: [id number] Transcribed By: Self Edit Transcribed Date: 12/13/2024 08:09 ET us Jonathan Roth MD IMG XR PROCEDURES Final Result * Hepatitis C antibody (08/19/2024 11:33 AM EDT) Hepatitis C Antibody Negative Negative LAB CHEMISTRY METHOD 08/19/2024 2:28 PM EDT [facility] Blood Venous blood specimen / Unknown Venipuncture / Unknown 08/19/2024 11:33 AM EDT 08/19/2024 12:45 PM EDT us Jonathan Roth MD LAB BLOOD ORDERABLES Final Resu lt [facility] ([facility]) [facility] [address] [place] [address], [place] [phone] * Falls Risk Assessment (08/24/2023) Falls Risk Assessment abstracted Historical Provider HEALTH MAINTENANCE Final Result * Depression Screening (08/24/2023) Depression Screening abstracted Historical Provider HEALTH MAINTENANCE Final Result * US ABDOMINAL AORTA REAL TIME SCREEN STUDY AAA (05/12/2023 9:46 AM EST) Anatomical Region Laterality Modality Ultrasound 04/27/2023 9:25 AM EST Narrative 05/12/2023 10:37 AM EST EXAM: Abdominal aorta ultrasound, AAA screening HISTORY: AAA screening. History of tobacco use. COMPARISON: None FINDINGS: No evidence of an abdominal aortic aneurysm. Proximal aorta measures 2.5 cm in maximal diameter. Mid aorta measures 2.2 cm. Distal aorta measures 2.0 cm. Proximal right common iliac artery measures 1.3 cm. Proximal left common iliac artery measures 1.3 cm. IMPRESSION: IMPRESSION: No evidence of an abdominal aortic aneurysm. POS - [id number] Procedure Note Jeanette Denise MD - 11/27/2023 EXAM: Abdominal aorta ultrasound, AAA screening HISTORY: AAA screening. History of tobacco use. COMPARISON: None FINDINGS: No evidence of an abdominal aortic aneurysm. Proximal aorta measures 2.5cm in maximal diameter. Mid aorta measures 2.2 cm. Distal aorta measures 2.0 cm.Proximal right common iliac artery measures 1.3 cm. Proximal left common iliac artery measures1.3 cm. IMPRESSION: IMPRESSION: No evidence of an abdominal aortic aneurysm. POS - [id number] us Jonathan Roth MD IM US PROCEDURES Final Result * Lipid panel (03/16/2023) LDL/HDL Ratio 0 Comment:no interpretation Triglycerides 0 mg/dL Comment:no interpretation Cholesterol 0 mg/dL Comment:no interpretation HDL 0 mg/dL Comment:no interpretation LDL Cholesterol 0 mg/dL Comment:no interpretation Blood Venous blood specimen / Unknown Historical Provider LAB BLOOD ORDERABLES Kristina l Result * Hm Colonoscopy (07/23/2020) Colonoscopy no interpretation , abstracted Anatomical Region Laterality Modality Other Historical Provider HEALTH MAINTENANCE Final Result from Last 3 Months or Most Recently Relevant to Health Maintenance Insurance * Guarantor: Jodie Ritchie Account Type Relation to Patient Date of Phone Billing Address Personal/Family Self 1955 [address] [address] MEDICARE MEDICAID - [place] * Guarantor: Jodie Ritchie Account Type Relation to Patient Date of Phone Billing Address Personal/Family Self 1955 [address] [place] [address] MEDICARE MEDICAID - [place] Advance Directives * Full Code - Confirmed (Latest Code Status on File) Date Activated Date Inactivated Comments 12/12/2024 3:08 PM This code statu s was ascertained in the following way: Code status discussion: discussion with patient To update the patient's code status, place a code status order. Do not modify or discontinue any currently active code status orders. Care Teams Jailer/Training Officer Relationship Specialty Start Date End Date Jonathan Roth MD [address] [place] [phone] PCP - General Internal Medicine 02/13/24
--- OUTSIDE RECORDS SUMMARY | 2025-02-26 21:46 | XMS_ITS | Continuity of Care Document ---
Author Organization [place] [facility], [facility] Address [address] [place] [address] Care Team Providers Care Sql Programmer Analyst Name Role Phone MEMO CASAREZ Referring Provider Assessment Encounter Date Assessment Date Assessment LastModified by Organization Details LastModified Time 12/02/2024 12/02/2024 69-year-old male presents for evaluation [...] sooner for any acute changes in hearing. [email or web address] Not available 12/02/2024 11:39:07 Plan of Treatment [...] Flag Note LastModifiedBy Organization Detail LastModifiedTime 12/03/19 25 audio gram No observ ation record ed. BARCODE Not Available 2024 16:55:27 Result Notes None recorded. Problems Name Problem SNOMED Code Status Onset Date Resolution Date Notes Provider Name and Address Organization Details Recorded Time Sensorineur al hearing loss of bilateral ears 913899336 Active 2024 AVILA CAT, AUD [address] [facility], [address], [place], [address], [facility] - [facility] 10:59:01 Bilateral tinnitus 5024433480937 Active 2024 SHAILA MADRIGAL PA-C [address] [facility], [address], [place], [address], [facility] - [facility] 11:39:14 Problem Notes None recorded. Procedures Surgical History Date Name Laterality Status Provider Name and Address Organization Details Recorded Time 12/03/19 Comp Audio with Tymps - 67236 & 65936 completed AVILA STEPHANIA, AUD [address] [facility] [address], [place], [address], [facility] - [facility] [place] 12/02/2024 10:58:34 transplantation of heart completed Gladis Marley [place] - [facility] [place] 12/02/2024 11:26:50 transplant of lung completed Gladis Marley [place] - [facility] [place] 12/02/2024 11:27:06 Imaging Results None recorded. Procedure [...] Updated DateTime 12/02/2024 170.18 cm 36 kg/m2 633368.25 g Gladis Marley [place] - [facility] 12/02/2024 11:25:49 Social History None recorded. Functional [...] Disorder N Anesthesia Complications N Heart Attack ([place]) N Other Skin Condition N Diabetes N Rhinitis N Bleeding Disorder Y Food Allergy N Arthritis N Hearing Loss N Hyperlipidemia N Cancer N Stroke N Dementia N Nasal polyps N Asthma N High Cholesterol N Sleep Disorder N GERD/Reflux N Liver Disease N Headaches N Fibromyalgia N Hypertension N Speech Delay N Kidney Disease Y Past Encounters Encounter ID Performer Location Encounter Start Date Encounter Closed Date Diagnosis/Indication Diagnosis SNOMED-CT Code Diagnosis ICD10 Code Diagnosis IMO Codes Diagnosis Note [id number] SHAILA MADRIGAL PA-C [facility] of [address] [address] 12/02/2024 10:27:16 12/02/2024 11:43:29 Sensorineural hearing loss of bilateral ears 788196240 H90.3 63343233 Bilateral tinnitus 83921 76644 102 H93.13 [id number] CLIFTON TURNER [facility] of [address] [address] 12/02/2024 10:58:27 12/15/2024 14:15:52 Sensorineural hearing loss of bilateral ears [id number] H90.3 [id number] Audiologic al evaluation results: Right ear: Normal [...] Member ID Guarantor Name 12/02/2024 1 MEDICARE B-[place]: [employer] David Ritchie [id number] David Ritchie Notes Date Note Type [...] in obtaining hearing aids. SHAILA MADRIGAL PA-C [address] [place] [address], [phone], [facility] - [facility] 12/02/2024 11:39:40 12/02/2024 text/html Audiological Evaluation HPIReported by PatientHearing LossFor hearing loss perceived, patient reportshearing loss in both ears (no differences noted between ears)but reportsgradual onset.TinnitusFor tinnitus reported, patient reportsboth ears. For sounds like, patient reportsbuzzing. AVILA CAT, [facility] [address] [address], [place], [address], [facility] 12/02/2024 11:06:32
--- OUTSIDE RECORDS SUMMARY | 2025-02-26 21:46 | XMS_ITS | Encounter Summary ---
Author Organization [facility] Address [address] [place] [address] Care Team Providers Care Police Officer Booking Name Role Phone Jonathan Roth MD Primary Care Provider [phone] Encounter Details Date Type Department Care Team Description 06/20/2011 Hotel Engineer Report Medical Records [address], [facility] Social History Tobacco Use Types Packs/Day Years [...] documented as of this encounter Care Teams Police Officer Booking Relationship Specialty Start Date End Date Jonathan Roth MD [address] [place], [place] [id number] PCP - General 01/01/01 documented as of this encounter
--- OUTSIDE RECORDS SUMMARY | 2025-02-26 21:46 | XMS_ITS | Encounter Summary ---
Author Organization [facility] Address [address] [place] [address] Care Team Providers Care Finance Lead Name Role Phone Jonathan Roth MD Primary Care Provider [phone] Encounter Details Date Type Department Care Team Description 05/12/2011 Starch And Prosize Mixer Report Medical Records [address] [place] [address] Franci Walters Social History Tobacco Use Types [...] documented as of this encounter Care Teams Finance Lead Relationship Specialty Start Date End Date Jonathan Roth MD [address] [place] [address] PCP - General 01/01/01 documented as of this encounter
--- OUTSIDE RECORDS SUMMARY | 2025-02-26 21:46 | XMS_ITS | Encounter Summary ---
Author Organization [facility] Address [address] [place] [address] Care Team Providers Care Lead Data Architect Name Role Phone Jonathan Roth MD Primary Care Provider [phone] Encounter Details Date Type Department Care Team Description 01/31/2022 Pt. Non Urgent Medical Question Nephrology - [place] [address] [place] [address] Rhett Vila MD [address] [place] [address] Social History Tobacco Use Types Packs/Day Years [...] documented as of this encounter Care Teams Lead Data Architect Relationship Specialty Start Date End Date Jonathan Roth MD [address] [place] [id number] PCP - General 01/01/01 documented as of this encounter
--- OUTSIDE RECORDS SUMMARY | 2025-02-26 21:46 | XMS_ITS | Encounter Summary ---
Author Organization [facility] Address [address] [place] [address] Care Team Providers Care Production Hand Name Role Phone Jonathan Roth MD Primary Care Provider [phone] Encounter Details Date Type Department Care Team Description 06/10/2011 Cupola Melter Report Medical Records [address], [facility] Social History Tobacco [...] documented as of this encounter Care Teams Production Hand Relationship Specialty Start Date End Date Jonathan Roth MD [address] [place], [place] [phone] PCP - General 01/01/01 documented as of this encounter
--- OUTSIDE RECORDS SUMMARY | 2025-02-26 21:46 | XMS_ITS | Encounter Summary ---
Author Organization [facility] Address [address] [place] [address] Care Team Providers Care Education Paraprofessional Name Role Phone Jonathan Roth MD Primary Care Provider [phone] Reason for Visit * Reason Onset Date Comments Faxed Order 12/06/2023 [facility] Encounter Details Date Type Department Care Team Description 12/06/2023 Telephone Adult Medicine [address] [phone] Jonathan Roth MD [address] [place] [address] Faxed Order ([facility] ) Social History Tobacco Use Types Packs/Day Years [...] encounter Miscellaneous Notes * Telephone Encounter - Cristal De Leon - 12/06/2023 10:08 AM EDT Faxed Care plan received from [facility] Please Review, sign and fax back to [phone] [facility] in [facility] bin for signature documented in this encounter Plan of Treatment Not on file documented as of this encounter Visit Diagnoses Not on filedocumented in this encounter Additional Health Concerns Infection Onset Date Last Indicated Resolved Time COVID-19 09/27/2023 09/28/2023 documented as of this encounter Care Teams Education Paraprofessional Relationship Specialty Start Date End Date Jonathan Roth MD [address] [place] [address] PCP - General 01/01/01 documented as of this encounter
--- OUTSIDE RECORDS SUMMARY | 2025-02-26 21:46 | XMS_ITS | Encounter Summary ---
Author Organization [facility] Address [address] [place] [address] Care Team Providers Care Data Conversion Operator Name Role Phone Jonathan Roth MD Primary Care Provider [phone] Encounter Details Date Type Department Care Team Description 12/13/2019 Orders Only Medical Records [address] [place] [address] Leeann Mckeon PA Social History Tobacco Use [...] Date/Time Associated Diagnosis Comments OUTSIDE ECHO Routine 12/09/2019 documented in this encounter Results * OUTSIDE ECHO (12/09/2019) Leeann [facility] documented in this encounter Visit Diagnoses Not on filedocumented in this encounter Additional Health Concerns Infection Onset Date Last Indicated Resolved Time COVID-19 09/27/2023 09/28/2023 documented as of this encounter Care Teams Data Conversion Operator Relationship Specialty Start Date End Date Jonathan Roth MD [address] [place] [address] PCP - General 01/01/01 documented as of this encounter
--- OUTSIDE RECORDS SUMMARY | 2025-02-26 21:46 | XMS_ITS | Encounter Summary ---
Author Organization [facility] Address [address] [place] [address] Care Team Providers Care Director Dental Services Name Role Phone Jonathan Roth MD Primary Care Provider [phone] Encounter Details Date Type Department Care Team Description 02/24/2020 Pt. Non Urgent Medic al Question Adult Medicine [address] [address] Leeann Mckeon PA Social History Tobacco Use [...] encounter Miscellaneous Notes * Telephone Encounter - Sheeba Mitchell M.A. - 02/24/2020 11:43 AM ESTFrom: Brian Ritchie To: Leeann Ortega PA-C Sent: 02/24/2020 11:16 AM EST Subject: Blood work from [facility] Leeann did you ever get the blood work from [facility]. If not I am giving blood next week why don'tyou put the order in for me at [facility] in [facility] documented in this encounter Plan of Treatment Not on file documented as of this encounter Visit Diagnoses Not on filedocumented in this encounter Additional Health Concerns Infection Onset Date Last Indicated Resolved Time COVID-19 09/27/2023 09/28/2023 documented as of this encounter Care Teams Director Dental Services Relationship Specialty Start Date End Date Jonathan Roth MD [address] [place] [address] PCP - General 01/01/01 documented as of this encounter
--- OUTSIDE RECORDS SUMMARY | 2025-02-26 21:46 | XMS_ITS | Encounter Summary ---
Author Organization [facility] Address [address] [place] [address] Care Team Providers Care Silk Worker Name Role Phone Jonathan Roth MD Primary Care Provider [phone] Encounter Details Date Type Department Care Team Description 02/07/2014 Transfer Records Medical Records [address] [place] [address] Abstract, Provider Social History Tobacco Use Types [...] documented as of this encounter Care Teams Silk Worker Relationship Specialty Start Date End Date Jonathan Roth MD [address] [place] [address] PCP - General 01/01/01 documented as of this encounter
--- OUTSIDE RECORDS SUMMARY | 2025-02-26 21:46 | XMS_ITS | Encounter Summary ---
Author Organization [facility] Address [address] [place] [address] Care Team Providers Care Transmission And Coordination Engineer Name Role Phone Jonathan Roth MD Primary Care Provider [phone] Reason for Visit * Reason Onset Date Comments Medication 05/20/2019 prep Encounter Details Date Type Department Care Team Description 05/20/2019 Refill Gastroenterology - [address] [address] Rober Cole MD Medication (prep) Social History Tobacco Use Types Packs/Day Years [...] documented as of this encounter Care Teams Transmission And Coordination Engineer Relationship Specialty Start Date End Date Jonathan Roth MD [address] [place] [address] PCP - General 01/01/01 documented as of this encounter
--- OUTSIDE RECORDS SUMMARY | 2025-02-26 21:46 | XMS_ITS | Encounter Summary ---
Author Organization [facility] Address [address] [place] [address] Care Team Providers Care Sheet Metal Operator Name Role Phone Jonathan Roth MD Primary Care Provider [phone] Reason for Visit * Reason Onset Date Comments Pulmonary Testing 09/30/2019 PFT order from 08/28/19 pt would like to schedule appt Encounter Details Date Type Department Care Team Description 09/30/2019 Pt. Non Urgent Medic al Question Adult Medicine [address] [address] Leeann Mckeon PA Social History Tobacco Use [...] Telephone Encounter - Diana Stratton M.A. - 09/30/2019 10:19 AM EDTFrom: David Ritchie To: Leeann Ortega PA-C Sent: 09/30/2019 10:16 AM EDT Subject: PFT Good morning no one has contacted me yet for a test yet documented in this encounter Plan of Treatment Not on file documented as of this encounter Visit Diagnoses Not on filedocumented in this encounter Additional Health Concerns Infection Onset Date Last Indicated Resolved Time COVID-19 09/27/2023 09/28/2023 documented as of this encounter Care Teams Sheet Metal Operator Relationship Specialty Start Date End Date Jonathan Roth MD [address] [place] [address] PCP - General 01/01/01 documented as of this encounter
--- OUTSIDE RECORDS SUMMARY | 2025-02-26 21:47 | XMS_ITS | Encounter Summary ---
Author Organization [facility] Address [address] [place] [address] Care Team Providers Care Master Machinist Name Role Phone Jonathan Roth MD Primary Care Provider [phone] Reason for Visit * Reason Onset Date Comments Provider Call Back 09/26/2022 Encounter Details Date Type Department Care Team Description 09/26/2022 Telephone Adult Medicine [address] [address] Jonathan Roth MD [address] [place] [address] Provider Call Back Social History Tobacco Use Types Packs/Day Years [...] suspected to have Coronavirus/COVID-19? No / Unsure 09/22/2022 9:10 AM EDT documented as of this encounter Miscellaneous Notes * Telephone Encounter - Marline Andrews R.N. - 09/26/2022 4:15 PM EDT Pt would like to know if it is okay for him to fly on vacation in November. 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 How long before the pain goes away? Pt would like you to call him back. * Telephone Encounter - Marline Andrews R.N. - 09/26/2022 3:30 PM EDT Left vm for pt to return my call * Telephone Encounter - Lily Roberts - 09/26/2022 12:25 PM EDT Patient didn't want to specify what it was about, just to give him a call back. Only wants to speakto Dr. Roth. Please advise. documented in this encounter Plan of Treatment Not on file documented as of this encounter Visit Diagnoses Not on filedocumented in this encounter Additional Health Concerns Infection Onset Date Last Indicated Resolved Time COVID-09/27/2023 09/28/2023 documented as of this encounter Care Teams Master Machinist Relationship Specialty Start Date End Date Jonathan Roth MD [address] [place] [address] PCP - General 01/01/01 documented as of this encounter
--- OUTSIDE RECORDS SUMMARY | 2025-02-26 21:47 | XMS_ITS | Encounter Summary ---
Author Organization [facility] Address [address] [place] [address] Care Team Providers Care Boilermaker Welder Name Role Phone Jonathan Roth MD Primary Care Provider [phone] Encounter Details Date Type Department Care Team Description 09/09/2014 Orders [place] [address] Jonathan Roth MD [address] [place] [address] Hyperkalemia (Primary Dx) Social History Tobacco Use Types Packs/Day Years [...] as of this encounter Plan of Treatment Scheduled Orders Name Type Priority Associated Diagnoses Orde r Schedule POTASSIUM ASSAY Lab Routine Hyperkalemia Expected: 09/09/2014, Expires: 09/09/2015 documented as of this encounter Visit Diagnoses Diagnosis Hyperkalemia- Primary Hyperpotassemia documented in this encounter Additional Health Concerns Infection Onset Date Last Indicated Resolved Time COVID-19 09/27/2023 09/28/2023 documented as of this encounter Care Teams Boilermaker Welder Relationship Specialty Start Date End Date Jonathan Roth MD [address] [place] [address] PCP - General 01/01/01 documented as of this encounter
--- OUTSIDE RECORDS SUMMARY | 2025-02-26 21:47 | XMS_ITS | Encounter Summary ---
Author Organization [facility] Address [address] [place] [address] Care Team Providers Care Civil Attorney Name Role Phone Jonathan Roth MD Primary Care Provider Encounter Details Date Type Department Care Team Description 03/18/2010 Training And Quality Manager Report Medical Records [address] [place] [address] Conor Murrieta MD Social History Tobacco Use [...] documented as of this encounter Care Teams Civil Attorney Relationship Specialty Start Date End Date Jonathan Roth MD [address] [place] [address] PCP - General 01/01/01 documented as of this encounter
--- OUTSIDE RECORDS SUMMARY | 2025-02-26 21:47 | XMS_ITS | Encounter Summary ---
Author Organization [facility] Address [address] [place] [address] Care Team Providers Care Trestle Mechanic Name Role Phone Jonathan Roth MD Primary Care Provider [phone] Reason for Visit * Reason Onset Date Comments REFERRAL 02/02/2012 gastroenterology Encounter Details Date Type Department Care Team Description 02/02/2012 Telephone Gastroenterology - [place] [address] [place], [place] [phone] Jonathan Roth MD [address] [place] [address] REFERRAL (gastroenterology) Social History Tobacco Use Types Packs/Day Years [...] encounter Miscellaneous Notes * Telephone Encounter - Sophia Hernandez - 02/02/2012 10:28 AM EDT Sorry, you are correct. Referral was not assigned. Patient is scheduled for colonoscopy. * Telephone Encounter - Jonathan Roth MD - 02/02/2012 9:14 AM EDT i believe pt is having this done on the of this month * Telephone Encounter - Sophia David - 02/02/2012 9:13 AM EDT After attempting to contact patient via 2 calls/ 1 letter, patient has not called back to schedule screening colonoscopy at this time. Patient will be removed from actively-worked referral list untilcalling back to schedule procedure. documented in this encounter Plan of Treatment Not on file documented as of this encounter Visit Diagnoses Not on filedocumented in this encounter Additional Health Concerns Infection Onset Date Last Indicated Resolved Time COVID-19 09/27/2023 09/28/2023 documented as of this encounter Care Teams Trestle Mechanic Relationship Specialty Start Date End Date Jonathan Roth MD [address] [place] [address] PCP - General 01/01/01 documented as of this encounter
--- OUTSIDE RECORDS SUMMARY | 2025-02-26 21:47 | XMS_ITS | Encounter Summary ---
Author Organization [facility] Address [address] [place] [address] Care Team Providers Care Bran Mixer Name Role Phone Jonathan Roth MD Primary Care Provider [phone] Encounter Details Date Type Department Care Team Description 09/22/2011 Natural Gas Inspector Report Medical Records [address] [place] [address] Conor Murrieta MD Social History Tobacco Use [...] documented as of this encounter Care Teams Bran Mixer Relationship Specialty Start Date End Date Jonathan Roth MD [address] [place] [address] PCP - General 01/01/01 documented as of this encounter
--- OUTSIDE RECORDS SUMMARY | 2025-02-26 21:47 | XMS_ITS | Encounter Summary ---
Author Organization [facility] Address [address] [place] [address] Care Team Providers Care Power Sweeper Operator Name Role Phone Jonathan Roth MD Primary Care Provider [phone] Reason for Visit * Reason Onset Date Comments APPOINTMENT 03/15/2017 repeat colonosco py Encounter Details Date Type Department Care Team Description 03/15/2017 Telephone Gastroenterology - [address] [address] Rober Cole MD APPOINTMENT (repeat colonoscopy) Social History Tobacco Use Types Packs/Day Years [...] encounter Miscellaneous Notes * Telephone Encounter - Jonathan Roth MD - 03/16/2017 5:26 PM EST Will send failure to show letter * Telephone Encounter - Georgia Rauschor - 03/15/2017 3:38 PM EST We have sent a follow-up letter advising the patient to contact us for an appointment to have theircolonoscopy with no response. At this time we will be removing this patient from our wait list. We would appreciate your assistance in facilitating the scheduling of this patient. documented in this encounter Plan of Treatment Not on file documented as of this encounter Visit Diagnoses Not on filedocumented in this encounter Additional Health Concerns Infection Onset Date Last Indicated Resolved Time COVID-19 09/27/2023 09/28/2023 documented as of this encounter Care Teams Power Sweeper Operator Relationship Specialty Start Date End Date Jonathan Roth MD [address] [place] [address] PCP - General 01/01/01 documented as of this encounter
--- OUTSIDE RECORDS SUMMARY | 2025-02-26 21:47 | XMS_ITS | Encounter Summary ---
Author Organization [facility] Address [address] [place] [address] Care Team Providers Care Airconditioning Engineer Name Role Phone Jonathan Roth MD Primary Care Provider [phone] Encounter Details Date Type Department Care Team Description 01/13/2017 Neighborhood Conservation Officer Report Medical Records [address] [place] [address] Dada Welch MD Social History Tobacco Use Types Packs/Day [...] documented as of this encounter Care Teams Airconditioning Engineer Relationship Specialty Start Date End Date Jonathan Roth MD [address] [place] [address] PCP - General 01/01/01 documented as of this encounter
--- OUTSIDE RECORDS SUMMARY | 2025-02-26 21:47 | XMS_ITS | Encounter Summary ---
Author Organization [facility] Address [address] [place] [address] Care Team Providers Care Motion Picture Scene Builder Name Role Phone Jonathan Roth MD Primary Care Provider [phone] Encounter Details Date Type Department Care Team Description 11/10/2016 Disk Grinder Report Medical Records [address] [place] [address] Abstract, Provider Social History Tobacco Use Types [...] documented as of this encounter Care Teams Motion Picture Scene Builder Relationship Specialty Start Date End Date Jonathan Roth MD [address] [place] [address] PCP - General 01/01/01 documented as of this encounter
--- OUTSIDE RECORDS SUMMARY | 2025-02-26 21:47 | XMS_ITS | Encounter Summary ---
Author Organization [facility] Address [address] [place] [address] Care Team Providers Care Freelance Art Director Name Role Phone Jonathan Roth MD Primary Care Provider Encounter Details Date Type Department Care Team Description 10/22/2015 Transfer Records Medical Records [address] [place] [address] Abstract, Provider Social History Tobacco Use Types [...] documented as of this encounter Care Teams Freelance Art Director Relationship Specialty Start Date End Date Jonathan Roth MD [address] [place] [address] PCP - General 01/01/01 documented as of this encounter
--- OUTSIDE RECORDS SUMMARY | 2025-02-26 21:47 | XMS_ITS | Encounter Summary ---
Author Organization [facility] Address [address] [place] [address] Care Team Providers Care Nursing Instructor Name Role Phone Jonathan Roth MD Primary Care Provider [phone] Encounter Details Date Type Department Care Team Description 09/12/2014 Orders Only Adult Medicine [address] [phone] Jonathan Roth MD [address] [place] [address] Social History Tobacco Use Types Packs/Day [...] documented as of this encounter Care Teams Nursing Instructor Relationship Specialty Start Date End Date Jonathan Roth MD [address] [place] [address] PCP - General 01/01/01 documented as of this encounter
--- OUTSIDE RECORDS SUMMARY | 2025-02-26 21:47 | XMS_ITS | Encounter Summary ---
Author Organization [facility] Address [address] [place] [address] Care Team Providers Care Registered Dental Assistant Name Role Phone Jonathan Roth MD Primary Care Provider [phone] Encounter Details Date Type Department Care Team Description 05/03/2016 It Consulting Manager Report Medical Records [address] [place] [address] Abstract, Provider Social History Tobacco Use Types [...] documented as of this encounter Care Teams Registered Dental Assistant Relationship Specialty Start Date End Date Jonathan Roth MD [address] [place] [address] PCP - General 01/01/01 documented as of this encounter
--- OUTSIDE RECORDS SUMMARY | 2025-02-26 21:47 | XMS_ITS | Encounter Summary ---
Author Organization [facility] Address [address] [place] [address] Care Team Providers Care Transportation Engineering Technician Name Role Phone Jonathan Roth MD Primary Care Provider [phone] Encounter Details Date Type Department Care Team Description 07/08/2014 Transfer Records Medical Records [address] [place] [address] Abstract, Provider Social History Tobacco Use Types [...] documented as of this encounter Care Teams Transportation Engineering Technician Relationship Specialty Start Date End Date Jonathan Roth MD [address] [place] [address] PCP - General 01/01/01 documented as of this encounter
--- OUTSIDE RECORDS SUMMARY | 2025-02-26 21:47 | XMS_ITS | Encounter Summary ---
Author Organization [facility] Address [address] [place] [address] Care Team Providers Care Mechanic Assistant Name Role Phone Jonathan Roth MD Primary Care Provider [phone] Encounter Details Date Type Department Care Team Description 2012 Operator Technician Report Medical Records [address] [place] [address] Abstract, Provider Social History Tobacco Use Types [...] documented as of this encounter Care Teams Mechanic Assistant Relationship Specialty Start Date End Date Jonathan Roth MD [address] [place] [address] PCP - General 01/01/01 documented as of this encounter
--- OUTSIDE RECORDS SUMMARY | 2025-02-26 21:47 | XMS_ITS | Encounter Summary ---
Author Organization [facility] Address [address] [place] [address] Care Team Providers Care Market Development Director Name Role Phone Jonathan Roth MD Primary Care Provider [phone] Reason for Visit * Reason Onset Date Comments Provider Call Back 06/18/2014 Encounter Details Date Type Department Care Team Description 06/18/2014 Telephone Adult Medicine [address] [phone] Jonathan Roth MD [address] [place] [address] Provider Call Back Social History Tobacco Use [...] encounter Miscellaneous Notes * Telephone Encounter - Shannan Gonzalez L.P.N. - 07/17/2014 2:08 PM EDT Message left for pt to call back * Telephone Encounter - Vidhya Gongora - 07/17/2014 11:56 AM EDT Patient returned call. Can be reached at [phone] * Telephone Encounter - Roxanna Smith - 06/20/2014 8:41 AM EDT Please call [phone] today , he would like to speak to Dr. Roth concerning his white blood count * Telephone Encounter - Lisa White R.N. - 06/18/2014 4:22 PM EDT call from patient he states his #'s are up his wbc is 4.3 and he only needs neupogen once a week on sundays his appt for tomorrow cancelled I called [facility] to get labs and orders * Telephone Encounter - Lisa White R.N. - 06/18/2014 10:26 AM EDT call #1 placed to patient booked for tomorrow for neupogen injection * Telephone Encounter - Vikram Shannon - 06/18/2014 8:53 AM EDT Caller requesting call back from provider: Is the caller the patient? YES Reason for call back: Patient states CORINE gave him a call, please call back and advise Caller offered to speak with the nurse for assistance: YES Response: Patient offered to speak with nurse for assistance and patient agreed. Message forwarded to nurse. documented in this encounter Plan of Treatment Not on file documented as of this encounter Visit Diagnoses Not on filedocumented in this encounter Additional Health Concerns Infection Onset Date Last Indicated Resolved Time COVID-19 09/27/2023 09/28/2023 documented as of this encounter Care Teams Market Development Director Relationship Specialty Start Date End Date Jonathan Roth MD [address] [place] [address] PCP - General 01/01/01 documented as of this encounter
--- OUTSIDE RECORDS SUMMARY | 2025-02-26 21:47 | XMS_ITS | Encounter Summary ---
Author Organization [facility] Address [address] [place] [address] Care Team Providers Care Artificial Candy Maker Name Role Phone Jonathan Roth MD Primary Care Provider [phone] Reason for Visit * Reason Comments E-prescribe Rx Request Lasix 40 mg 1 sh[address] Encounter Details Date Type Department Care Team Description 08/16/2011 Refill Cardiology - [address] [address] Beatris Bhatia FNP E-prescribe Rx Request (Lasix 40 mg 1 daily ) Social History Tobacco Use Types Packs/Day [...] encounter Miscellaneous Notes * Telephone Encounter - Bozena Lomas L.P.N. - 08/16/2011 10:20 AM EDT Component Value Date NA 137 07/30/2011 K 4.0 07/30/2011 CO2 30.5 07/30/2011 CL 101 07/30/2011 BUN 18 07/30/2011 CREAT 1.5 07/30/2011 GLU 82 07/30/2011 CA 9.4 07/30/2011 GFR 51 07/30/2011 Last appt in cardiology was with Beatris Bhatia 2-29-12 severe pulmonary hypertension. documented in this encounter Plan of Treatment Not on file documented as of this encounter Visit Diagnoses Not on filedocumented in this encounter Additional Health Concerns Infection Onset Date Last Indicated Resolved Time COVID-19 09/27/2023 09/28/2023 documented as of this encounter Care Teams Artificial Candy Maker Relationship Specialty Start Date End Date Jonathan Roth MD [address] [place] [address] PCP - General 01/01/01 documented as of this encounter
--- OUTSIDE RECORDS SUMMARY | 2025-02-26 21:47 | XMS_ITS | Encounter Summary ---
Author Organization [facility] Address [address] [place] [address] Care Team Providers Care Zigzag Stitcher Name Role Phone Jonathan Roth MD Primary Care Provider [phone] Reason for Visit * Reason Onset Date Comments Special Procedure 09/22/2022 Encounter Details Date Type Department Care Team Description 09/22/2022 Telephone Adult Medicine [address] [phone] Jonathan Roth MD [address] [place] [address] Special Procedure Social History Tobacco Use Types Packs/Day Years [...] encounter Miscellaneous Notes * Telephone Encounter - Judith Oliveros - 09/22/2022 2:48 PM EDT Patient had last colonoscopy and per report not due for 7-10 years for next one. documented in this encounter Plan of Treatment Not on file documented as of this encounter Visit Diagnoses Not on filedocumented in this encounter Additional Health Concerns Infection Onset Date Last Indicated Resolved Time COVID-19 09/27/2023 09/28/2023 documented as of this encounter Care Teams Zigzag Stitcher Relationship Specialty Start Date End Date Jonathan Roth MD [address] [place], [place] [phone] PCP - General 01/01/01 documented as of this encounter
--- OUTSIDE RECORDS SUMMARY | 2025-02-26 21:47 | XMS_ITS | Encounter Summary ---
Author Organization [facility] Address [address] [place] [address] Care Team Providers Care Flagstone Layer Name Role Phone Jonathan Roth MD Primary Care Provider [phone] Encounter Details Date Type Department Care Team Description 10/27/2014 Orders Only Adult Medicine [address] [phone] Jonathan Roth MD [address] [place] [address] Social History Tobacco Use Types Packs/Day [...] documented as of this encounter Care Teams Flagstone Layer Relationship Specialty Start Date End Date Jonathan Roth MD [address] [place] [address] PCP - General 01/01/01 documented as of this encounter
--- OUTSIDE RECORDS SUMMARY | 2025-02-26 21:47 | XMS_ITS | Encounter Summary ---
Author Organization [facility] Address [address] [place] [address] Care Team Providers Care Liquefier Name Role Phone Jonathan Roth MD Primary Care Provider [phone] Encounter Details Date Type Department Care Team Description 10/05/2022 Pt. Non Urgent Medical Question Nephrology - [address] [address] Rhett Vila MD [address] [place] [address] Social History Tobacco Use Types Packs/Day Years [...] AM EDT documented as of this encounter Plan of Treatment Not on file documented as of this encounter Visit Diagnoses Not on filedocumented in this encounter Additional Health Concerns Infection Onset Date Last Indicated Resolved Time COVID-19 09/27/2023 09/28/2023 documented as of this encounter Care Teams Liquefier Relationship Specialty Start Date End Date Jonathan Roth MD [address] [place] [address] PCP - General 01/01/01 documented as of this encounter
== END 2025-02-26 13:09 | disposition home or self-care (01) ==
LOC: HO.HPODS 11:01
PROVIDERS: PCP Internal Medicine; Visit Provider Student in an Organized Health Care Education/Training Program
DX: L60.3 Nail dystrophy (principal); L60.9 Nail disorder, unspecified; B35.1 Tinea unguium; N18.9 Chronic kidney disease, unspecified; R60.0 Localized edema; M54.9 Dorsalgia, unspecified; I73.9 Peripheral vascular disease, unspecified; M21.40 Flat foot [pes planus] (acquired), unspecified foot
CPT/HCPCS: 11721; 99204

== ENCOUNTER → 2025-02-26 11:01 | Outpatient (BNVA) | payer MEDICARE, MEDICAID, SELFPAY | PROVIDERS: PCP Internal Medicine; Visit Provider Student in an Organized Health Care Education/Training Program | DX: L60.3 Nail dystrophy (principal); L60.9 Nail disorder, unspecified; B35.1 Tinea unguium; N18.9 Chronic kidney disease, unspecified; R60.0 Localized edema; M54.9 Dorsalgia, unspecified; I73.9 Peripheral vascular disease, unspecified; M21.40 Flat foot [pes planus] (acquired), unspecified foot | CPT/HCPCS: 11721; 99202 ==